=== PATIENT | male | born 1955 | race Caucasian/White ===

== ENCOUNTER 2018-01-23 04:44 | Outpatient (CLI) | payer BC, OTHER ==
[2018-01-23 19:57] LABS: RHEUMATOID FACTOR NEGATIVE (Negative)
[2018-01-25 13:12] LABS: ANA SCREEN NEGATIVE (NEGATIVE)
== END 2018-01-23 04:45 | disposition home or self-care (01) ==
LOC: LAB.WCP 04:44
PROVIDERS: ATTEND Family Medicine
DX: M19.041 Primary osteoarthritis, right hand (principal)
CPT/HCPCS: 36415; 84550; 85651; 86038; 86430

== ENCOUNTER 2019-02-24 08:00 | Outpatient (CLI) | payer BC ==
[2019-02-24 13:34] LABS: ALBUMIN 4.1 g/dL (3.2-5.5); ALBUMIN/GLOBULIN RATIO 1.4 (1.0-2.2); ALKALINE PHOSPHATASE 60 IU/L (42-121); ALT ALANINE AMINOTRANSFERASE 16 IU/L (10-60); AST ASPARTATE AMINOTRANSFERASE 22 IU/L (10-42); BUN - BLOOD UREA NITROGEN 15 mg/dL (6-20); CALCIUM 8.8 mg/dL (8.5-10.3); CARBON DIOXIDE - CO2 24 mmol/L (21-32); CHLORIDE 109 mmol/L (101-111); CHOL/HDL RATIO 6.1 (<5.0); CHOLESTEROL 207 mg/dL; GFR - MDRD 75 (>89); GLUCOSE 101 mg/dL (70-100); HDL CHOLESTEROL 34 mg/dL; LDL CHOLESTEROL,CALCULATED 109 mg/dL; LDL/HDL RATIO 3.2 (<3.6); SODIUM 141 mmol/L (135-145); TOTAL PROTEIN 7.1 g/dL (6.7-8.2); VLDL CHOLESTEROL 64 mg/dL
[2019-02-24 13:38] LABS: BASOPHILS % (AUTO) 0.6 %; EOSINOPHILS # (AUTO) 0.1 10^3/uL (0.0-0.7); EOSINOPHILS % (AUTO) 2.3 %; HGB - HEMOGLOBIN 14.6 g/dL (14.0-18.0); LYMPHOCYTES # (AUTO) 1.3 10^3/uL (1.5-3.5); LYMPHOCYTES % (AUTO) 23.7 %; MEAN CORPUSCULAR HEMOGLOBIN 33.3 pg (27.0-31.0); MEAN CORPUSCULAR VOLUME 97.9 fL (80.0-94.0); MEAN PLATELET VOLUME 11.3 fL (7.4-11.4); MONOCYTES # (AUTO) 0.6 10^3/uL (0.0-1.0); MONOCYTES % (AUTO) 11.5 %; NEUTROPHILS # (AUTO) 3.3 10^3/uL (1.5-6.6); NEUTROPHILS % (AUTO) 61.5 %; PLT - PLATELET COUNT 187 10^3/uL (130-450); RED BLOOD COUNT 4.39 10^6/uL (4.70-6.10); RED CELL DISTRIBUTION WIDTH 12.9 % (12.0-15.0); WHITE BLOOD COUNT 5.3 x10^3/uL (4.8-10.8)
[2019-02-24 14:27] LABS: FREE T4 (FREE THYROXINE) 0.78 ng/dL (0.58-1.64)
== END 2019-02-24 08:01 | disposition home or self-care (01) ==
LOC: LAB.WCP 08:00
PROVIDERS: ATTEND Physician Assistant Medical
DX: Z00.00 Encounter for general adult medical examination without abnormal findings (principal); E78.5 Hyperlipidemia, unspecified; Z12.5 Encounter for screening for malignant neoplasm of prostate
CPT/HCPCS: 36415; 80053; 80061; 83721; 84153; 84439; 84443; 85025

== ENCOUNTER 2020-08-21 17:13 | Emergency (ER) | payer BC ==
--- NOTE | 2020-08-21 18:52 | ED Physician Documentation ---
History of Present Illness - Stated complaint Stated Complaint: FB IN RT EAR - Chief complaint Chief Complaint: Heent - History obtained from History obtained from: Patient - History of Present Illness Timing: Today Pain level max: 0 Pain level now: 0 - Additonal information Additional information: 65-year-old male presents the emergency department complaining of right ear pain for the past week. He states he has had drainage from the ear. Put toilet paper in the ear today and is unable to remove it. No fevers. No chills. No rhinorrhea or congestion. Nothing makes it better or worse. Review of Systems Constitutional: denies: Fever, Chills Skin: denies: Rash Neurologic: denies: Headache PD PAST MEDICAL HISTORY - Past Medical History Past Medical History: Yes Cardiovascular: Hypertension, High cholesterol Respiratory: None Neuro: None Endocrine/Autoimmune: None GI: None : None HEENT: None Psych: None Musculoskeletal: None Derm: None - Past Surgical History Past Surgical History: Yes General: Appendectomy Cardiovascular: Valve replacement - Present Medications Home Medications: Ambulatory Orders Medication Instructions Recorded Confirmed Aspirin [Aspir 81] 81 mg DAILY 01/09/14 02/28/14 [place]-3 Fatty Acids [Fish Oil] 1,000 mg DAILY 01/09/14 02/28/14 Simvastatin [Zocor] 20 mg DAILY 01/09/14 02/28/14 Warfarin [Coumadin] 8 mg DAILY 01/09/14 02/28/14 Neomycin/Polymyx/Hc Otic Drops 4 drops RIGHTEAR TID #1 bottle 08/21/20 [Cortisporin Ear Susp] - Allergies Allergies/Adverse Reactions: Allergies Allergy/AdvReac Type Severity Reaction Status Date / Time No Known Drug Allergies Allergy Verified 08/21/20 17:21 - Social History Does the pt smoke?: No Smoking Status: Never smoker Does the pt drink ETOH?: Yes Does the pt have substance abuse?: No PD ED PE NORMAL - Vitals Vital signs reviewed: Yes - General General: Alert and oriented X 3, No acute distress - HEENT HEENT: Moist mucous membranes, Other (L ear is normal. R ear canal is erythematous with white discharge in the canal. TM normal. no FB) - Neck Neck: Supple, no meningeal sign - Cardiac Cardiac: RRR - Respiratory Respiratory: No respiratory distress, Clear bilaterally - Abdomen Abdomen: Soft, Non tender, Non distended - Derm Derm: Warm and dry - Neuro Neuro: Alert and oriented X 3 - Psych Psych: Normal mood, Normal affect Results - Vitals Vitals: Vital Signs - 24 hr 08/21/20 08/21/20 17:18 18:58 Temperature 36 C L 36.2 C L Heart Rate 60 66 Respiratory 18 15 Rate Blood Pressure 137/63 H 128/69 O2 Saturation 100 99 Oxygen O2 Source Room air PD MEDICAL DECISION MAKING - ED course Complexity details: considered differential, d/w patient ED course: Patient with R otitis externa. Will place on otic abx. No FB. Patient counseled regarding signs and symptoms for which I believe and urgent re- evaluation would be necessary. Patient with good understanding of and agreement to plan and is comfortable going home at this time This document was made in part using voice recognition software. While efforts are made to proofread this document, sound alike and grammatical errors may occur. Departure - Departure Disposition: Home, Self Care Clinical Impression: Otitis externa Qualifiers: Otitis externa type: unspecified type Chronicity: acute Laterality: right Qualified Code(s): H60.501 - Unspecified acute noninfective otitis externa, right ear Condition: Good Instructions: ED Otitis Externa Follow-Up: Amanda Navarro PA-C [Primary Care Provider] - Within 1 week Prescriptions: Neomycin/Polymyx/Hc Otic Drops [Cortisporin Ear Susp] 4 drops RIGHTEAR TID #1 bottle Comments: Use the drops to help with the infection in the ear. If you are having drainage you can lightly place a cotton ball at the auditory canal opening. Follow-up with your doctor for further care. Discharge Date/Time: 08/21/20 18:59
[2020-08-21 18:59] VITALS: BP 128/69
== END 2020-08-21 18:59 | disposition home or self-care (01) ==
LOC: ED 17:13
DX: H60.501 Unspecified acute noninfective otitis externa, right ear (principal); I10 Essential (primary) hypertension; Z95.2 Presence of prosthetic heart valve; Z79.01 Long term (current) use of anticoagulants; Z79.82 Long term (current) use of aspirin
CPT/HCPCS: 99282; 99284

== ENCOUNTER 2020-10-20 08:00 | Outpatient (CLI) | payer BC | END 2020-10-20 23:59 | disposition home or self-care (01) | LOC: LAB.WCP 08:00 | PROVIDERS: ATTEND Physician Assistant Medical | DX: L30.9 Dermatitis, unspecified (principal) | CPT/HCPCS: 87070; 87181; 87205 ==

== ENCOUNTER 2020-11-04 07:25 | Outpatient (CLI) | payer BC ==
[2020-11-04 12:25] LABS: BASOPHILS % (AUTO) 0.6 %; EOSINOPHILS # (AUTO) 0.1 10^3/uL (0.0-0.7); LYMPHOCYTES % (AUTO) 21.1 %; MEAN CORPUSCULAR HEMOGLOBIN 33.7 pg (27.0-31.0); MEAN CORPUSCULAR HGB CONC 33.3 g/dL (32.0-36.0); MEAN CORPUSCULAR VOLUME 101.2 fL (80.0-94.0); MEAN PLATELET VOLUME 11.4 fL (7.4-11.4); MONOCYTES # (AUTO) 0.7 10^3/uL (0.0-1.0); MONOCYTES % (AUTO) 13.9 %; NEUTROPHILS # (AUTO) 2.9 10^3/uL (1.5-6.6); PLT - PLATELET COUNT 184 10^3/uL (130-450); RED BLOOD COUNT 4.15 10^6/uL (4.70-6.10); RED CELL DISTRIBUTION WIDTH 12.8 % (12.0-15.0); WHITE BLOOD COUNT 4.7 x10^3/uL (4.8-10.8)
[2020-11-04 12:28] LABS: ALBUMIN 4.1 g/dL (3.2-5.5); ALBUMIN/GLOBULIN RATIO 1.4 (1.0-2.2); BILIRUBIN,TOTAL 0.9 mg/dL (0.2-1.0); CALCIUM 8.8 mg/dL (8.5-10.3); CREATININE 1.1 mg/dL (0.6-1.2); POTASSIUM 4.1 mmol/L (3.5-5.0)
[2020-11-04 12:40] LABS: THYROID STIMULATING HORMONE 4.19 uIU/mL (0.34-5.60)
== END 2020-11-04 23:59 | disposition home or self-care (01) ==
LOC: LAB.WCP 07:25
PROVIDERS: ATTEND Family Medicine
DX: E78.5 Hyperlipidemia, unspecified (principal); I48.91 Unspecified atrial fibrillation; I35.0 Nonrheumatic aortic (valve) stenosis
CPT/HCPCS: 36415; 80053; 84443; 85025

== ENCOUNTER 2020-12-30 16:12 | Outpatient (CLI) | payer BC ==
[2020-12-30 16:44] VITALS: BP 129/63
--- NOTE | 2020-12-30 16:44 | SLEEP CARE CONSULTATION ---
Information from patient questionnaire entered by Teto Paetl. I have reviewed and concur with the information entered by Teto Patel. This document represents the service I personally performed and the decisions made by me, Darby Lee ARNP. History of Present Illness Service Date and Time: 12/30/2020 1612 Reason for Visit: New patient Chief Complaint: reports: Unrefreshed sleep, Snoring, Observed pauses in breathing, Fatigue, Frequent awakenings at night Date of Onset: Don't know Usual bedtime: 10:00 PM Time it takes to fall asleep: Not long Snores at night: Yes Observed to quit breathing while asleep: Yes Sleeps alone due to snoring: No Number of times waking at night: Once a night Reasons for waking at night: reports: Gasping for air (seen by his but doesn't fully awaken), Pain, Bathroom Toss, Turn, or Twitch while sleeping: Yes Recalls having dreams: Yes Usually gets out of bed at: 4:00 AM Feels refreshed in the morning: No Morning headache: No Sleepy or fatigued during the day: No Ever fallen asleep while driving: No Takes day naps: No Dreams during day naps: No Prior sleep studies: Yes Year and Where: Home study - don't remember Type of Sleep Study: Home sleep study Additional HPI information: I had the pleasure of seeing DYLAN GREWAL today regarding the possibility of him having a sleep disorder. His current complaints are fatigue, frequent night awakenings and snoring. He has been diagnosed with atrial fibrillation and was sent here by cardiology for evaluation. He has a mechanical valve. He is accompanied by his and she has heard him snore and had pauses in breathing. 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 Patient is and lives in [place]. Have you smoked in the past 12 months: No Cigarettes per day (20/pack): 20 Years of smokin Quit date: 2006 Smoking Pack Years: 20.0 Alcohol use: Yes Alcohol amount and frequency: 1 beer a day every 3 days Caffeine use: Yes Caffeine amount and frequency: 1 cup of coffee every day Family History Family history of sleep disordered breathing: No Allergies and Home Medications Drug allergies reviewed: Yes (NKDA) Home medication list reviewed: Yes Allergy and home medication list: Baby aspirin fish oil Atorvastatin Metoprolol warfarin dofetilde (Tikosyn) Review of Systems Cardiovascular: reports: chest pain, irregular heart rate or pulse. denies: high blood pressure Respiratory: reports: shortness of breath Neurological: denies: headaches Psychiatric: denies: anxiety, depression Ear/Nose/Throat: reports: tonsillectomy, wisdom teeth removed Musculoskeletal: reports: joint swelling, muscle pain or cramping Physical Exam Blood Pressure: 129/63 Cuff size: wrist Heart Rate: 69 O2 Saturation: 96 Height: 5 ft 11 in Weight: 225 lb Body Mass Index: 31.4 BMI Classification: Obese Neck circumference: 17 (inches) Mouth and throat: narrow oropharynx Soft palate: long Hard palate: normal Uvula: normal Uvula visualization: 50% Mallampati Class II Tongue: enlarged in size with teeth watson on lateral edges Tonsils: absent bilaterally Neck: normal w/o lymphadenopathy or thyromegaly Heart: regular rate and rhythm Lungs: clear bilaterally Impression and Plan 1. Suspected Obstructive Sleep Apnea-Hypopnea Syndrome, as suggested by a history of loud and irregular snoring, observed cessation of breath while asleep, gasping or choking in sleep, unrefreshed sleep, and excessive daytime sleepiness. Narrow oropharynx and obesity are common predisposing factors for obstructive sleep apnea-hypopnea syndrome. I recommend proceeding to polysomnography to confirm the diagnosis and to assess severity. If the patient has significant sleep disordered breathing, a manual CPAP titration study will also be performed to find the optimal treatment pressure. I informed the patient of what the sleep studies involve and after some discussion, obtained agreement to proceed. The pathophysiology of obstructive sleep apnea-hypopnea syndrome was discussed with the patient and health risks of cardiovascular and cerebrovascular disease if not treated. Risks of drowsy driving discussed in detail and patient advised to avoid long distance driving and to hide puller at the first sign of drowsiness. Patient agreed to plan. * Schedule polysomnography +- manual CPAP titration study and return in 1-2 weeks after the study to discuss result and initiate therapy. * Avoid long distance driving or driving when feeling sleepy. * Avoid alcohol, sedative and muscle relaxant around bedtime. * Attempt to lose weight. * Review instructions provided by trained office staff on how to prepare for the sleep study. * Return for follow-up after sleep study completed. Counseling Topics: Weight loss health impact Visit Type: In Office Other Participants: Spouse/Significant Other Time Spent with Patient (minutes): 30 Provider Statement: I spent 100% of the Face to Face Visit with the patient with greater than 50% spent counseling the patient and coordination of care.
== END 2020-12-30 16:13 | disposition home or self-care (01) ==
LOC: SC 16:12
PROVIDERS: ATTEND Nurse Practitioner Family
DX: G47.10 Hypersomnia, unspecified (principal); G47.8 Other sleep disorders; R06.81 Apnea, not elsewhere classified; R06.83 Snoring; E66.9 Obesity, unspecified; Z68.31 Body mass index [BMI] 31.0-31.9, adult
CPT/HCPCS: 99203; 99212

== ENCOUNTER 2021-01-06 16:20 | Outpatient (CLI) | payer BC | END 2021-01-06 16:21 | disposition home or self-care (01) | LOC: SC 16:20 | PROVIDERS: ATTEND Nurse Practitioner Family | DX: G47.33 Obstructive sleep apnea (adult) (pediatric) (principal); E66.9 Obesity, unspecified; Z68.31 Body mass index [BMI] 31.0-31.9, adult | CPT/HCPCS: 95806 ==

== ENCOUNTER 2021-01-13 14:19 | Outpatient (CLI) | payer BC ==
--- NOTE | 2021-01-13 14:45 | SLEEP CARE CONSULTATION ---
Information from patient questionnaire entered by Kelly Berg. I have reviewed and concur with the information entered by Kelly Berg. This document represents the service I personally performed and the decisions made by , Darby Lee ARNP. History of Present Illness Service Date and Time: 01/13/2021 141 Initial [place] Sleepiness Scale score: 6 (in 2020) Current [place] Sleepiness Scale score: 3 Additional HPI information: DYLAN GREWAL returns with spouse for follow up and results of the recently performed home sleep study. I explained the pathophysiology behind obstructive sleep apnea. We then spent quite a bit of time discussing different treatment options. For mild obstructive sleep apnea, surgery and oral appliance are alternatives to nasal CPAP therapy but in moderate or severe cases, nasal CPAP is the most effective and reliable treatment. I reviewed the impact of weight changes on sleep apnea and strongly recommended losing weight. I explained how CPAP machine works with sample devices RespirCrowd Senses Dreamstation and ResFatwire [id number] and what to expect when using the machine. Patient counseled not drink alcohol less than 4 hours before bedtime as it can increase snoring and apnea. Patient was cautioned about risks of drowsy driving until sleepiness symptoms resolve. Sleep Study - Results Type of Sleep Study: Home sleep study Prior sleep studies: Yes Year and Where: Home study - don't remember Polysomnography/Home Sleep Study results: Physician Impression: The quality of the study is good. The length of the study is adequate (> 240 minutes). Please also see the tabulated and graphic data. 1. Obstructive Sleep Apnea-Hypopnea (ICD-10 G47.33), mild, with an AHI of 8.6/hr and catrachito SaO2 of 82%. During the study, the patient had 41 apneas (40 obstructive, 0 central, 1 mixed) and 33 hypopneas. The longest episode lasted 92.0 seconds. The respiratory events occurred more frequently during supine sleep (supine AHI was 10.5 and non-supine, 6.07). 2. Hypoxemia (ICD-10 R09.02), mild, with the lowest oxygen saturation of 82 % and 7.2 minutes with SaO2 under 90%. Baseline oxygen saturation was normal (Average oxygen saturation was 93%). Allergies and Home Medications Home medication list reviewed: Yes (no changes) Review of Systems Review of systems same as previous: Yes (no changes) Physical Exam Heart Rate: 49 O2 Saturation: 96 Height: 5 ft 11 in Weight: 224 lb (with boots) Body Mass Index: 31.2 BMI Classification: Obese Impression and Plan 1. Obstructive Sleep Apnea-Hypopnea Syndrome, mild, with lowest oxygen saturation of 82%. Obviously this is the cause of the patients symptoms of unrefreshed sleep, and excessive daytime sleepiness. Positive pressure therapy could benefit heart arrhythmia (atrial fibrillation). 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 I advised him that CPAP therapy would give the best benefit for his heart and cardiovascular system but he may choose the oral appliance therapy to control his apneas as well. He voiced understanding. He will call with his decision on which therapy he would like to try. * Call office with decision on chosen therapy modality * Attempt to lose weight. * Avoid alcohol consumption near bedtime. * Avoid supine sleep * The patient is again cautioned about driving until sleepiness completely resolves. * Return follow depends on chosen therapy. Counseling Topics: Weight loss health impact Visit Type: In Office Other Participants: Spouse/Significant Other Time Spent with Patient (minutes): 20 Provider Statement: I spent 100% of the Face to Face Visit with the patient with greater than 50% spent counseling the patient and coordination of care.
== END 2021-01-13 14:20 | disposition home or self-care (01) ==
LOC: SC 14:19
PROVIDERS: ATTEND Nurse Practitioner Family
DX: G47.33 Obstructive sleep apnea (adult) (pediatric) (principal); E66.9 Obesity, unspecified; Z68.31 Body mass index [BMI] 31.0-31.9, adult
CPT/HCPCS: 99212; 99213

== ENCOUNTER 2021-03-09 08:00 | Outpatient (CLI) | payer BC | END 2021-03-09 23:59 | disposition home or self-care (01) | LOC: LAB.S 08:00 | PROVIDERS: ATTEND Physician Assistant Medical | DX: L30.9 Dermatitis, unspecified (principal) | CPT/HCPCS: 87070; 87181; 87205; 87640 ==

== ENCOUNTER 2021-08-23 12:50 | Outpatient (CLI) | payer BC | END 2021-08-23 23:59 | disposition home or self-care (01) | LOC: LAB.R 12:50 | PROVIDERS: ATTEND Physician Assistant Medical | DX: L30.9 Dermatitis, unspecified (principal) | CPT/HCPCS: 87070; 87077; 87181; 87205 ==

== ENCOUNTER 2022-03-06 18:32 | Outpatient (CLI) | payer MEDICARE, BC | END 2022-03-06 18:33 | disposition short-term general hospital (02) | LOC: EMS 18:32 | DX: R55 Syncope and collapse (principal); R53.1 Weakness; R11.2 Nausea with vomiting, unspecified; M54.2 Cervicalgia; M25.512 Pain in left shoulder; M25.511 Pain in right shoulder | CPT/HCPCS: A0425; A0429 ==

== ENCOUNTER 2022-03-07 05:49 | Outpatient (CLI) | payer BC, MEDICARE | END 2022-03-07 05:50 | disposition critical access hospital (66) | LOC: EMS 05:49 | DX: R53.1 Weakness (principal); R40.0 Somnolence | CPT/HCPCS: A0425; A0429 ==

== ENCOUNTER 2022-03-07 06:04 | Emergency (ER) | payer BC, MEDICARE ==
[2022-03-07] MEDS ORDERED: WARFARIN 5 MG TABLET PO STA (06:24)
[2022-03-07] MEDS ORDERED: MORPHINE 2 MG/ML CARPUJECT IVP STA (06:25)
--- NOTE | 2022-03-07 06:33 | ED Physician Documentation ---
History of Present Illness - Stated complaint Stated Complaint: WEAKNESS - Chief complaint Chief Complaint: Neuro - History obtained from History obtained from: Patient, Family - History of Present Illness Timing: Yesterday - Additonal information Additional information: 66-year-old male with history of prosthetic valve on warfarin presents by EMS from home for severe generalized weakness. EMS reports that yesterday the patient was in the pool when he lifted his arms above his head. He felt severe debilitating weakness radiating down from his upper extremities to his lower extremities. Patient was flown from home to [facility] for the symptoms, where he underwent CTA of the chest, CTA of head and neck, and CT C-spine, all which were reportedly unremarkable. Patient was discharged home early this morning, however when he arrived home he was so weak he could not even walk and his again called 911. On arrival patient reports profound weakness in his upper and lower extremities, as well as severe burning pain in his shoulders and neck. Reports that weakness is worse in his lower extremities and his upper extremities. He states that this is happened before in the remote past, however never this bad. Patient denies history of back surgery, denies history of back injections, denies history of IV drug abuse. Only surgical history is valvular replacement many years ago. reports that the patient has been unable to urinate since last night. Patient denies loss of sensation in his upper and lower extremities. Review of Systems Ten Systems: 10 systems reviewed and negative Constitutional: denies: Fever, Chills, Myalgias Cardiac: denies: Chest pain / pressure, Palpitations Respiratory: denies: Dyspnea, Cough : reports: Unable to Void Musculoskeletal: reports: Neck pain. denies: Back pain, Joint pain Neurologic: reports: Generalized weakness, Numbness. denies: Focal weakness, Difficulty speaking, Near syncope, Syncope, Seizure, Confused, Altered mental status, Headache, Head injury, LOC PD PAST MEDICAL HISTORY - Past Medical History Past Medical History: Yes Cardiovascular: Hypertension, High cholesterol Respiratory: None Neuro: None Endocrine/Autoimmune: None GI: None : None HEENT: None Psych: None Musculoskeletal: None Derm: None - Past Surgical History Past Surgical History: Yes General: Appendectomy Cardiovascular: Valve replacement - Present Medications Home Medications: Ambulatory Orders Medication Instructions Recorded Confirmed Aspirin [Aspir 81] 81 mg DAILY 01/09/14 02/28/14 [place]-3 Fatty Acids [Fish Oil] 1,000 mg DAILY 01/09/14 02/28/14 Simvastatin [Zocor] 20 mg DAILY 01/09/14 02/28/14 Warfarin [Coumadin] 8 mg DAILY 01/09/14 02/28/14 Neomycin/Polymyx/Hc Otic Drops 4 drops RIGHTEAR TID #1 bottle 08/21/20 [Cortisporin Ear Susp] - Allergies Allergies/Adverse Reactions: Allergies Allergy/AdvReac Type Severity Reaction Status Date / Time No Known Drug Allergies Allergy Verified 03/07/22 06:12 - Social History Does the pt smoke?: No Smoking Status: Never smoker Does the pt drink ETOH?: Yes Does the pt have substance abuse?: No - Immunizations Immunizations are current?: Yes PD ED PE NORMAL - Vitals Vital signs reviewed: Yes - General General: Alert and oriented X 3, No acute distress, Well developed/nourished - HEENT HEENT: Atraumatic, PERRL, EOMI, Ears normal - Neck Neck: Supple, no meningeal sign, No bony TTP, No adenopathy - Cardiac Cardiac: RRR, No gallop, No rub, Strong equal pulses - Respiratory Respiratory: No respiratory distress, Clear bilaterally - Abdomen Abdomen: Soft, Non tender, Non distended - Male Male : Deferred - Rectal Rectal: Deferred - Back Back: No CVA TTP, No spinal TTP - Derm Derm: Normal color, Warm and dry, No rash - Extremities Extremities: No deformity, No tenderness to palpate - Neuro Neuro: Alert and oriented X 3, category analyst 2-12 intact, No sensory deficit, Normal speech, Other (profound weakness in BLE, unable to move legs. 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 ) - Psych Psych: Normal mood, Normal affect Results - Vitals Vitals: Vital Signs - 24 hr 03/07/22 03/07/22 03/07/22 06:12 06:20 07:55 Temperature 36.4 C L Heart Rate 71 75 Respiratory 15 12 Rate Blood Pressure 129/64 126/66 O2 Saturation 95 94 99 03/07/22 03/07/22 03/07/22 08:00 09:09 09:14 Temperature Heart Rate 64 60 61 Respiratory 15 13 13 Rate Blood Pressure 118/90 H 120/66 120/66 O2 Saturation 99 98 98 03/07/22 03/07/2203/07/22 09:54 10:40 11:26 Temperature Heart Rate 64 55 L 78 Respiratory 18 16 17 Rate Blood Pressure 128/62 136/63 H 132/62 H O2 Saturation 98 99 99 03/07/22 03/07/22 03/07/22 11:43 13:36 15:10 Temperature Heart Rate 65 81 68 Respiratory 15 16 16 Rate Blood Pressure 131/64 H 134/58 H O2 Saturation 95 92 96 03/07/22 03/07/22 03/07/22 16:14 17:12 17:42 Temperature Heart Rate 76 71 64 Respiratory 16 16 16 Rate Blood Pressure 136/60 H 116/63 116/60 O2 Saturation 92 116 H 94 03/07/22 18:00 Temperature Heart Rate 64 Respiratory 16 Rate Blood Pressure 121/58 L O2 Saturation 96 Oxygen O2 Source Nasal cannula - EKG (time done) 0643 Rate: Rate (enter#) (65) Rhythm: NSR [place]: Normal Intervals: Prolonged [place] QRS: Normal Ischemia: Normal ST segments - Labs Labs: Laboratory Tests 03/07/22 03/07/22 03/07/22 07:38 07:38 07:38 WBC 9.0 RBC 4.11 L Hgb 14.3 Hct 40.0 L MCV 97.3 H MCH 34.8 H MCHC 35.8 RDW 12.5 Plt Count 179 MPV 9.9 Neut # (Auto) 7.9 H Lymph # (Auto) 0.7 L [place] # (Auto) 0.5 Eos # (Auto) 0.0 Baso # (Auto) 0.0 Absolute Nucleated RBC 0.00 Nucleated RBC % 0.0 ESR 8 PT INR Sodium 137 Potassium 4.0 Chloride 102 Carbon Dioxide 27 Anion Gap 8.0 BUN 11 Creatinine 0.9 Estimated GFR (MDRD) 84 L Glucose 140 H Calcium 9.1 Phosphorus 2.4 L Magnesium 2.0 Total Bilirubin 1.2 H AST 21 ALT 23 Alkaline Phosphatase 71 Troponin I High Sens C-Reactive Protein < 1.0 Total Protein 7.2 Albumin 4.1 Globulin 3.1 Albumin/Globulin Ratio 1.3 Urine Color Urine Clarity Urine pH Ur Specific [place] Urine Protein Urine Glucose (UA) Urine Ketones Urine Occult Blood Urine Nitrite Urine Bilirubin Urine Urobilinogen Ur Leukocyte Esterase Ur Microscopic Review Urine Culture Comments Nasal Adenovirus (PCR) Nasal B. parapertussis DNA (PCR) Nasal Coronavir 229E PCR Nasal Coronavir HKU1 PCR Nasal Coronavir NL63 PCR Nasal Coronavir OC43 PCR Nasal Enterovir/Rhinovir PCR Nasal Influenza B PCR Nasal Influenza A PCR Nasal Parainfluen 1 PCR Nasal Parainfluen 2 PCR Nasal Parainfluen 3 PCR Nasal Parainfluen 4 PCR Nasal RSV (PCR) Nasal B.pertussis DNA PCR Nasal C.pneumoniae (PCR) [place] Human Metapneumo PCR Nasal M.pneumoniae (PCR) Nasal SARS-CoV-2 (PCR) 03/07/22 03/07/22 03/07/22 07:38 07:38 08:20 WBC RBC Hgb Hct MCV MCH MCHC RDW Plt Count MPV Neut # (Auto) Lymph # (Auto) [place] # (Auto) Eos # (Auto) Baso # (Auto) Absolute Nucleated RBC Nucleated RBC % ESR PT 23.5 H INR 2.1 H Sodium Potassium Chloride Carbon Dioxide Anion Gap BUN Creatinine Estimated GFR (MDRD) Glucose Calcium Phosphorus Magnesium Total Bilirubin AST ALT Alkaline Phosphatase Troponin I High Sens 3.4 C-Reactive Protein Total Protein Albumin Globulin Albumin/Globulin Ratio Urine Color YELLOW Urine Clarity CLEAR Urine pH 7.5 Ur Specific [place] 1.015 Urine Protein NEGATIVE Urine Glucose (UA) NEGATIVE Urine Ketones NEGATIVE Urine Occult Blood TRACE-INTA Urine Nitrite NEGATIVE Urine Bilirubin NEGATIVE Urine Urobilinogen 0.2 (NORMAL) Ur Leukocyte Esterase NEGATIVE Ur Microscopic Review NOT INDICATED Urine Culture Comments NOT INDICATED Nasal Adenovirus (PCR) Nasal B. parapertussis DNA (PCR) Nasal Coronavir 229E PCR Nasal Coronavir HKU1 PCR Nasal Coronavir NL63 PCR Nasal Coronavir OC43 PCR Nasal Enterovir/Rhinovir PCR Nasal Influenza B PCR Nasal Influenza A PCR Nasal Parainfluen 1 PCR Nasal Parainfluen 2 PCR Nasal Parainfluen 3 PCR Nasal Parainfluen 4 PCR Nasal RSV (PCR) Nasal B.pertussis DNA PCR Nasal C.pneumoniae (PCR) [place]iel Human Metapneumo PCR Nasal M.pneumoniae (PCR) Nasal SARS-CoV-2 (PCR) 03/07/22 17:34 WBC RBC Hgb Hct MCV MCH MCHC RDW Plt Count MPV Neut # (Auto) Lymph # (Auto) [place] # (Auto) Eos # (Auto) Baso # (Auto) Absolute Nucleated RBC Nucleated RBC % ESR PT INR Sodium Potassium Chloride Carbon Dioxide Anion Gap BUN Creatinine Estimated GFR (MDRD) Glucose Calcium Phosphorus Magnesium Total Bilirubin AST ALT Alkaline Phosphatase Troponin I High Sens C-Reactive Protein Total Protein Albumin Globulin Albumin/Globulin Ratio Urine Color Urine Clarity Urine pH Ur Specific [place] Urine Protein Urine Glucose (UA) Urine Ketones Urine Occult Blood Urine Nitrite Urine Bilirubin Urine Urobilinogen Ur Leukocyte Esterase Ur Microscopic Review Urine Culture Comments Nasal Adenovirus (PCR) NOT DETECTED Nasal B. parapertussis DNA (PCR) NOT DETECTED Nasal Coronavir 229E PCR NOT DETECTED Nasal Coronavir HKU1 PCR NOT DETECTED Nasal Coronavir NL63 PCR NOT DETECTED Nasal Coronavir OC43 PCR NOT DETECTED Nasal Enterovir/Rhinovir PCR NOT DETECTED Nasal Influenza B PCR NOT DETECTED Nasal Influenza A PCR NOT DETECTED Nasal Parainfluen 1 PCR NOT DETECTED Nasal Parainfluen 2 PCR NOT DETECTED Nasal Parainfluen 3 PCR NOT DETECTED Nasal Parainfluen 4 PCR NOT DETECTED Nasal RSV (PCR) NOT DETECTED Nasal B.pertussis DNA PCR NOT DETECTED Nasal C.pneumoniae (PCR) NOT DETECTED [place]iel Human Metapneumo PCR NOT DETECTED Nasal M.pneumoniae (PCR) NOT DETECTED Nasal SARS-CoV-2 (PCR) NOT DETECTED PD MEDICAL DECISION MAKING - ED course ED course: Patient presenting for severe generalized weakness, lower greater than upper. Reports severe neck pain, denies trauma or other obvious causes for why a neurologic deficit would be present. Negative CTA of head and neck, negative CT C-spine, negative CTA of the chest at outside hospital. has copies of discharge paperwork saying that everything was "normal". Will give medications for pain and will plan MRI with and without contrast of brain and full spine. Concern for possible lesion versus myelitis versus MS versus spinal cord pathology. reports that patient is having difficulty urinating, bladder scan ordered. Care of the patient is signed out to oncoming ED provider. Final disposition pending results and their judgment. Departure - Departure Disposition: 02 Transfer Acute Care Hosp Clinical Impression: Paralysis, Spinal cord lesion Condition: Serious Discharge Date/Time: 03/07/22 18:40
[2022-03-07 07:47] LABS: BASOPHILS % (AUTO) 0.1 %; HGB - HEMOGLOBIN 14.3 g/dL (14.0-18.0); LYMPHOCYTES # (AUTO) 0.7 10^3/uL (1.5-3.5); LYMPHOCYTES % (AUTO) 7.4 %; MEAN CORPUSCULAR HEMOGLOBIN 34.8 pg (27.0-31.0); MEAN CORPUSCULAR HGB CONC 35.8 g/dL (32.0-36.0); MEAN CORPUSCULAR VOLUME 97.3 fL (80.0-94.0); MEAN PLATELET VOLUME 9.9 fL (7.4-11.4); MONOCYTES # (AUTO) 0.5 10^3/uL (0.0-1.0); MONOCYTES % (AUTO) 5.1 %; NEUTROPHILS # (AUTO) 7.9 10^3/uL (1.5-6.6); NEUTROPHILS % (AUTO) 87.1 %; PLT - PLATELET COUNT 179 10^3/uL (130-450); RED BLOOD COUNT 4.11 10^6/uL (4.70-6.10); RED CELL DISTRIBUTION WIDTH 12.5 % (12.0-15.0)
[2022-03-07 07:54] LABS: INR 2.1 (0.8-1.2); PT - PROTHROMBIN TIME 23.5 secs (9.9-12.6)
[2022-03-07 08:04] LABS: ALBUMIN 4.1 g/dL (3.2-5.5); ALBUMIN/GLOBULIN RATIO 1.3 (1.0-2.2); ALKALINE PHOSPHATASE 71 IU/L (42-121); ALT ALANINE AMINOTRANSFERASE 23 IU/L (10-60); AST ASPARTATE AMINOTRANSFERASE 21 IU/L (10-42); BILIRUBIN,TOTAL 1.2 mg/dL (0.2-1.0); BUN - BLOOD UREA NITROGEN 11 mg/dL (6-20); CALCIUM 9.1 mg/dL (8.5-10.3); CARBON DIOXIDE - CO2 27 mmol/L (21-32); CHLORIDE 102 mmol/L (101-111); CREATININE 0.9 mg/dL (0.6-1.2); GFR - MDRD 84 (>89); GLUCOSE 140 mg/dL (70-100); PHOSPHORUS 2.4 mg/dL (2.5-4.6); SODIUM 137 mmol/L (135-145); TOTAL PROTEIN 7.2 g/dL (6.7-8.2)
[2022-03-07 08:05] LABS: CRP - C-REACTIVE PROTEIN < 1.0 mg/dL (0-1.0)
[2022-03-07] MEDS ORDERED: DEXAMETHASONE 10 MG/ML VIAL IV STA ×2 (08:42→16:21)
[2022-03-07 10:01] LABS: BILIRUBIN,URINE NEGATIVE (NEGATIVE); CLARITY,URINE CLEAR (CLEAR); GLUCOSE, URINE (UA) NEGATIVE (NEGATIVE); KETONES,URINE (UA) NEGATIVE (NEGATIVE); LEUKOCYTE ESTERASE, URINE NEGATIVE (NEGATIVE); NITRITE,URINE NEGATIVE (NEGATIVE); OCCULT BLOOD,URINE TRACE-INTA (NEGATIVE); PH,URINE 7.5 PH (5.0-7.5); PROTEIN,URINE NEGATIVE (NEGATIVE); UROBILINOGEN,URINE 0.2 (NORMAL) E.U./dL (NORMAL)
[2022-03-07] MEDS ORDERED: GADOBUTROL 10 MMOL/10 ML VIAL ONE (10:22)
--- NOTE | 2022-03-07 13:54 | MRI Report ---
PROCEDURE: Brain W/WO INDICATIONS: SEVERE WEAKNESS LOWER>UPPER CONTRAST: IV CONTRAST: Gadavist ml: 10 TECHNIQUE: Noncontrast axial T1 spin echo, axial T2 fast spin echo, sagittal and axial FLAIR, coronal T2 fast sp in echo, axial gradient echo, axial diffusion and ADC through the brain. After the administration of contrast, axial and coronal T1 spin echo with fat saturation through the brain. COMPARISON: None. FINDINGS: Image quality: Excellent. CSF spaces: Basal cisterns are patent. No extra-axial fluid collections. Ventricles are normal in size and shape. Brain: No midline shift. No intracranial bleeds or masses. No abnormal intracranial enhancement. There is cerebral volume loss for age. There is periventricular white matter chronic small vessel is chemic change. The brainstem appears normal. Diffusion-weighted images demonstrate no acute ischemi c insults. No chronic ischemic insults. Normal intravascular flow voids are present. Skull and face: Calvarial marrow is normal in signal. Orbits appear normal. Sinuses: Sinuses and mastoids appear clear. IMPRESSION: 1. Mild volume loss and small vessel ischemic disease. 2. No acute process. No recent infarct. Reviewed by: Delphine Palencia MD on 03/07/2022 1:53 PM PDT Approved by: Delphine Palencia MD on 03/07/2022 1:53 PM PDT Station ID: [id number]
[2022-03-07] MEDS ORDERED: predniSONE 20 MG TABLET PO STA (15:30)
--- NOTE | 2022-03-07 15:57 | MRI Report ---
PROCEDURE: Lumbar Spine W/WO INDICATIONS: LOWER EXTREMITY WEAKNESS CONTRAST: IV CONTRAST: Gadavist ml: 10 TECHNIQUE: Noncontrast sagittal T1 spin echo and T2 fast spin echo, sagittal STIR, axial T1 and T2 fast spin ech o through the lumbar spine. In cases with scoliosis, additional coronal T2 fast spin echo may be per formed. After the administration of contrast, sagittal and axial T1 spin echo with fat saturation th rough the lumbar spine. COMPARISON: None. FINDINGS: Image quality: Excellent. Alignment and curvature: There is normal bony alignment. Marrow: Marrow demonstrates an overall heterogeneous pattern. There is appearance of increased T1 an d T2 signal within L2 and L4 and S1 suggestive of hemangiomas. No acute vertebral body compression fr actures. No suspicious marrow enhancement. Spinal cord: Conus medullaris terminates at the L1 level. Visualized spinal cord demonstrates nayan l signal, without suspicious enhancement. Paraspinous soft tissues: No paravertebral masses or abnormal enhancement. Paraspinous muscle atrop hy with fatty infiltration is noted. Discs: Multilevel moderate disc desiccation is present. L1-L2: No disc bulge or spinal stenosis. Mild left foraminal narrowing with facet and ligamentum flav um hypertrophy. L2-L3: No disc bulge or spinal stenosis. Moderate bilateral foraminal narrowing with facet and lig amentum flavum hypertrophy. L3-L4: Minimal disc bulge without spinal stenosis. Moderate bilateral foraminal narrowing with face t and ligamentum flavum hypertrophy. L4-L5: No disc bulge or spinal stenosis. Moderate bilateral foraminal narrowing with facet and liga mentum flavum hypertrophy. L5-S1: Minimal disc bulge without spinal stenosis. Minimal foraminal narrowing. IMPRESSION: Multilevel degenerative changes. Multilevel foraminal narrowing most notable at L2-3 through L4-5 secondary to facet arthropathy. No spinal stenosis. Heterogeneous appearance of the marrow suggestive of fatty replacement. No enhancing lesions are iden tified. Reviewed by: Cary Ratliff MD on 03/07/2022 3:56 PM PDT Approved by: Cary Ratliff MD on 03/07/2022 3:56 PM PDT Station ID: [id number]
[2022-03-07] MEDS ORDERED: GADOBUTROL 10 MMOL/10 ML VIAL IVP ONE (16:16)
[2022-03-07] MEDS ORDERED: ONDANSETRON 4 MG/2 ML VIAL IVP STA (17:03)
[2022-03-07 18:03] VITALS: BP 121/58
--- NOTE | 2022-03-07 18:31 | ED Physician Documentation ---
ED Addendum - Addendum Addendum: 03/07/22 18:22 The patient was signed out to me at change of shift by Dr. Chicas after presenting to the emergency department with Severe weakness of bilateral upper and lower extremities of sudden onset yesterday. I did spend a very long time speaking with this patient and his to try to determine exactly what had happened. The patient reported to me that he had gone to work yesterday morning and felt normal. He came home and took a shower and as he was walking out the door afterward, suddenly noted a burning pain in his neck, radiating out to both shoulders. In that incident, he also developed extreme weakness of his bilateral arms. He was able to use them a little but the weakness seem to progress. He sat down on the couch for a few minutes and then finally lowered himself onto the floor because he was beginning to feel faint and unwell. After laying on the floor for several minutes he tried to get up but then noticed that now his legs were also very weak, which they had not been initially. When the symptoms did not resolve after some time, the called EMS who arrived and were very concerned to the point where they arranged an airlift of the [facility] to [facility]. The patient was seen at [facility], reports having undergone CTAs of the head and neck as well as chest, and then ultimately discharged. He states he was perhaps slightly better upon discharge but not Much. He states that he had been unable to ambulate to the bathroom and had to be wheeled to his car. When they arrived home, he required heavy assistance from his and a neighbor to get back into the house. The patient states that after spending the night trying to rest, he found that he was worse in terms of the weakness again and so decided to come back to the emergency department. He was also continuing to have pain in his neck. He reports furthermore that he had not been able to urinate since last night. The patient and also both report multiple episodes of feeling faint and syncopal or near syncopal when in upright position. The seem to be associated with worsening pain in the neck. Patient states that when he would lay down, he would wake up again and find himself to be sweating heavily. The patient denies any trauma to his neck. He states nothing like this is ever happened before. He denies any sensory deficits. No visual changes or difficulty speaking or swallowing. He states his appetite has been decreased. The patient was seen by Dr. Chicas upon arrival and MRIs of the brain and entire spinal column were ordered and Were pending at the time of signout. I ordered a dose of Decadron 20 mg IV for the patient and this did seem to improve his symptoms. A, though not drastically. On reevaluation, he had very slow response of bilateral upper extremities and left lower extremity. 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 He also was able to resist and pull my hand Toward himself though was easily overcome. He was able to lift both legs off the bed, though with less strength on the left than the right. The same was true with dorsi and plantar flexion. The patient ultimately was sent for MRI but the radiologist stated she would not do the entire MR series that was ordered because there is not time in the schedule. She felt that considering the studies that had been done at [facility], the studies that she would need to rule out anything not seen on CT would be had/brain with and without contrast and a noncontrast lumbar spine. These were ultimately done and found to be negative other than degenerative changes in the spine. I did reevaluate the patient who was still quite weak and unable to stand up. The weakness seems to be more pronounced on the left than the right, with the right upper extremity seeming improved since my initial evaluation. The patient also after sitting up for approximately 10 minutes did suddenly lose consciousness and began to nod off and when shaken awake, stated that he was not feeling well. When laid back, he did become alert again and noted that he felt hot and sweaty. I at this point spoke with [facility], first with Dr. Sullivan of neurology. She did not feel that this is likely to be a stroke syndrome and was concerned about a spinal cord lesion in the cervical region. The case was then discussed by the transfer center with Dr. Guzman, the spine attending, who is in the operating room and unavailable to speak to me. However, he felt the patient needed to come to [facility] urgently/emergently for MRI of the neck and further evaluation. I then spoke with Dr. Su, the ED attending on duty who accepted the patient in transfer. I spoke with the patient and his , who are agreeable to transfer. Final impression: 1. Bilateral upper and lower extremity weakness 2. 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
[2022-03-07 18:42] LABS: B. PARAPERTUSSIS- RESP PCR PAN NOT DETECTED; B. PERTUSSIS- RESP PCR PANEL NOT DETECTED; C. PNEUMONIAE- RESP PCR PANEL NOT DETECTED; CORONAVIRUS 229E-RESP PCR NOT DETECTED; CORONAVIRUS HKU1-RESP PCR NOT DETECTED; CORONAVIRUS NL63-RESP PCR NOT DETECTED; CORONAVIRUS OC43-RESP PCR NOT DETECTED; HUMAN METAPNEUMOVIRUS NOT DETECTED; INFLUENZA A- RESP PCR PANEL NOT DETECTED; INFLUENZA B - RESP PCR PANEL NOT DETECTED; M. PNEUMONIAE- RESP PCR PANEL NOT DETECTED; PARAINFLUENZA VIRUS 1 NOT DETECTED; PARAINFLUENZA VIRUS 2 NOT DETECTED; PARAINFLUENZA VIRUS 3 NOT DETECTED; PARAINFLUENZA VIRUS 4 NOT DETECTED; RHINOVIRUS/ENTEROVIRUS NOT DETECTED; RSV- RESP PCR PANEL NOT DETECTED; SARS-CoV-2 -RESP PCR PANEL NOT DETECTED
== END 2022-03-07 18:40 | disposition short-term general hospital (02) ==
LOC: EDUNIT# → ED 06:04
DX: G95.9 Disease of spinal cord, unspecified (principal); R29.898 Other symptoms and signs involving the musculoskeletal system; Z20.822 Contact with and (suspected) exposure to COVID-19
CPT/HCPCS: 36415; 70553; 72158; 80053; 81003; 83735; 84100; 84484; 85025; 85610; 85651; 86140; 87633; 93005; 96374; 96375; 99285; A9270; A9585; J7512; 81001; 87086

== ENCOUNTER 2022-07-16 21:33 | Emergency (ER) | payer BC, MEDICARE ==
[2022-07-16 21:46] VITALS: BP 146/62
[2022-07-16 23:13] LABS: BILIRUBIN,URINE NEGATIVE (NEGATIVE); GLUCOSE, URINE (UA) NEGATIVE (NEGATIVE); KETONES,URINE (UA) NEGATIVE (NEGATIVE); LEUKOCYTE ESTERASE, URINE SMALL (NEGATIVE); NITRITE,URINE NEGATIVE (NEGATIVE); OCCULT BLOOD,URINE LARGE (NEGATIVE); PROTEIN,URINE NEGATIVE (NEGATIVE); UROBILINOGEN,URINE 0.2 (NORMAL) E.U./dL (NORMAL)
[2022-07-16 23:17] LABS: CLARITY,URINE HAZY (CLEAR)
[2022-07-16 23:18] LABS: BACTERIA,URINE Many /HPF (None Seen); RBC,URINE TNTC /HPF (0-5); SQUAMOUS EPITHELIAL CELL,UR NONE SEEN (<= Few)
[2022-07-16] MEDS ORDERED: SULFAMETH/TRIMETH DS 800/160 MG TABLET PO STA (23:22)
--- NOTE | 2022-07-16 23:41 | ED Physician Documentation ---
History of Present Illness - Stated complaint Stated Complaint: MALE - Chief complaint Chief Complaint: General - History obtained from History obtained from: Patient - Additonal information Additional information: The patient comes to the emergency department with chief complaint of being unable to pass his catheter while self cathing and then noticing blood in his urine. The patient states that he has not had any trouble self cathing recently until today. He states that this morning, he did not have any trouble but noticed that there was some slight blood tingeing to his urine. As he cath eterized himself throughout the rest of the day, he did not notice an increase in blood until this evening, when he tried to access his bladder via catheter and was unsuccessful. He states he used 5 catheters trying to get in and finally, did get some urine but noticed that there was blood in it. He also noticed that a clot passed from the tip of his penis after he took the catheter out. The patient denies dysuria. No fevers or chills. No abdominal pain, nausea, vomiting, or other discomfort. The patient states he has to self cath because of a stroke he had this summer. He is not sure if his prostate is enlarged or not. Review of Systems Ten Systems: 10 systems reviewed and negative Constitutional: reports: Reviewed and negative Eyes: reports: Reviewed and negative Ears: reports: Reviewed and negative Nose: reports: Reviewed and negative Throat: reports: Reviewed and negative Cardiac: reports: Reviewed and negative Respiratory: reports: Reviewed and negative GI: reports: Reviewed and negative : reports: Hematuria Skin: reports: Reviewed and negative Musculoskeletal: reports: Reviewed and negative Neurologic: reports: Reviewed and negative Psychiatric: reports: Reviewed and negative Endocrine: reports: Reviewed and negative Immunocompromised: reports: Reviewed and negative PD PAST MEDICAL HISTORY - Past Medical History Past Medical History: Yes Cardiovascular: Hypertension, High cholesterol Respiratory: None Neuro: CVA Endocrine/Autoimmune: None GI: None : None HEENT: None Psych: None Musculoskeletal: None Derm: None - Past Surgical History Past Surgical History: Yes General: Appendectomy Cardiovascular: Valve replacement - Present Medications Home Medications: Ambulatory Orders Medication Instructions Recorded Confirmed Aspirin [Aspir 81] 81 mg DAILY 01/09/14 02/28/14 Pixley-3 Fatty Acids [Fish Oil] 1,000 mg DAILY 01/09/14 02/28/14 Simvastatin [Zocor] 20 mg DAILY 01/09/14 02/28/14 Warfarin [Coumadin] 8 mg DAILY 01/09/14 02/28/14 Neomycin/Polymyx/Hc Otic Drops 4 drops RIGHTEAR TID #1 bottle 08/21/20 [Cortisporin Ear Susp] Sulfamethox/Trimeth 800/160 1 each PO BID #14 tablet 07/16/22 [Bactrim Ds 800/160] - Allergies Allergies/Adverse Reactions: Allergies Allergy/AdvReac Type Severity Reaction Status Date / Time No Known Drug Allergies Allergy Verified 07/16/22 21:45 - Social History Does the pt smoke?: No Smoking Status: Never smoker Does the pt drink ETOH?: Yes Does the pt have substance abuse?: No - Immunizations Immunizations are current?: Yes PD ED PE NORMAL - Vitals Vital signs reviewed: Yes - General General: Alert and oriented X 3, No acute distress, Well developed/nourished - HEENT HEENT: Atraumatic, PERRL, EOMI, Moist mucous membranes - Respiratory Respiratory: No respiratory distress - Abdomen Abdomen: Soft, Non tender, Non distended - Male Male : Other (Normal male genitalia without external evidence of trauma. A small clot is noted at the tip of the patient's penis at the urethral meatus.) - Derm Derm: Warm and dry - Extremities Extremities: No deformity - Neuro Neuro: Alert and oriented X 3 - Psych Psych: Normal mood, Normal affect Results - Vitals Vitals: Oxygen O2 Source Room air - Labs Labs: Microbiology 07/16/22 23:07 Urine Culture - Final Urine,Catheterized Klebsiella Oxytoca Laboratory Tests 07/16/22 23:07 Urine Color YELLOW Urine Clarity HAZY Urine pH 6.0 Ur Specific [place] 1.010 Urine Protein NEGATIVE Urine Glucose (UA) NEGATIVE Urine Ketones NEGATIVE Urine Occult Blood LARGE H Urine Nitrite NEGATIVE Urine Bilirubin NEGATIVE Urine Urobilinogen 0.2 (NORMAL) Ur Leukocyte Esterase SMALL H Urine RBC TNTC H Urine WBC 11-25 H Ur Squamous Epith Cells NONE SEEN Urine Bacteria Many H Ur Microscopic Review INDICATED Urine Culture Comments INDICATED PD MEDICAL DECISION MAKING - ED course Complexity details: considered differential, d/w patient ED course: I did have nursing staff do a bladder scan on the patient, which showed his bladder to have a volume of greater than 900 cc. A Ackerman catheter was placed and drained easily with only slight blood tingeing of urine. The patient put out over a liter of urine while in the ED. I have given the patient a leg bag with his Ackerman and advised him to keep the Ackerman catheter in place for at least the next couple of days. I suspect he will notice resolution of the blood in the meantime. His urinalysis did show some signs of urinary tract infection, and the patient has been started on antibiotics for this. We have discussed the usual indications for return, and the timeline for follow-up to have the Ackerman removed. Departure - Departure Disposition: 01 Home, Self Care Clinical Impression: Urinary retention Hematuria Qualifiers: Hematuria type: unspecified type Qualified Code(s): R31.9 - Hematuria, unspecified Urinary tract infection Qualifiers: Urinary tract infection type: acute cystitis Hematuria presence: with hematuria Qualified Code(s): N30.01 - Acute cystitis with hematuria Condition: Stable Instructions: ED Catheter Care Ackerman, ED Retention Urinary Male, ED UTI Cystitis Male Prescriptions: Sulfamethox/Trimeth 800/160 [Bactrim Ds 800/160] 1 each PO BID #14 tablet Comments: You were found to have nearly a liter of urine in your bladder. This was blood- tinged but certainly not severely bloody. You were found to have a urinary tract infection, which is most likely the cause of your bloody urine. A prescription for your antibiotics has been sent electronically transmitted to the [facility] pharmacy in [place], and you will need to pick this up in the morning to continue on your course of antibiotics. A catheter has been placed to help your bladder drain spontaneously for the next couple of days. You will need to have the catheter removed after this and go back to self cathing. You may have this done by your primary doctor or by your urologist, or you may return here. Please schedule an appointment to follow-up with your primary doctor regardless for any further concerns. Discharge Date/Time: 07/17/22 00:00
== END 2022-07-17 | disposition home or self-care (01) ==
LOC: ED 21:33
DX: R33.9 Retention of urine, unspecified (principal); N30.01 Acute cystitis with hematuria
CPT/HCPCS: 81001; 87077; 87086; 87181; 99283; 99284; A9270; 81003

== ENCOUNTER 2022-08-04 17:35 | Outpatient (CLI) | payer BC, MEDICARE | END 2022-08-04 17:36 | disposition critical access hospital (66) | LOC: EMS 17:35 | DX: N50.811 Right testicular pain (principal); N36.8 Other specified disorders of urethra; R50.9 Fever, unspecified | CPT/HCPCS: A0425; A0429 ==

== ENCOUNTER 2022-08-04 17:53 | Emergency (ER) | payer BC, MEDICARE ==
[2022-08-04 18:14] LABS: BASOPHILS % (AUTO) 0.2 %; EOSINOPHILS % (AUTO) 0.1 %; HCT - HEMATOCRIT 40.9 % (42.0-52.0); HGB - HEMOGLOBIN 13.5 g/dL (14.0-18.0); LYMPHOCYTES # (AUTO) 0.7 10^3/uL (1.5-3.5); LYMPHOCYTES % (AUTO) 4.3 %; MEAN PLATELET VOLUME 9.1 fL (7.4-11.4); MONOCYTES # (AUTO) 0.9 10^3/uL (0.0-1.0); MONOCYTES % (AUTO) 5.5 %; NEUTROPHILS # (AUTO) 14.6 10^3/uL (1.5-6.6); NEUTROPHILS % (AUTO) 89.3 %; PLT - PLATELET COUNT 235 10^3/uL (130-450); RED BLOOD COUNT 4.35 10^6/uL (4.70-6.10); RED CELL DISTRIBUTION WIDTH 12.7 % (12.0-15.0); WHITE BLOOD COUNT 16.3 x10^3/uL (4.8-10.8)
[2022-08-04 18:20] LABS: INR 3.4 (0.8-1.2)
[2022-08-04 18:26] LABS: ALBUMIN 3.9 g/dL (3.2-5.5); ALBUMIN/GLOBULIN RATIO 1.2 (1.0-2.2); CALCIUM 8.9 mg/dL (8.5-10.3); CREATININE 1.1 mg/dL (0.6-1.2); POTASSIUM 3.8 mmol/L (3.5-5.0); TOTAL PROTEIN 7.1 g/dL (6.7-8.2)
[2022-08-04] MEDS ORDERED: SODIUM CHLORIDE 0.9% 1,000 ML IV STA ×2 (18:49→19:19)
[2022-08-04] MEDS ORDERED: HYDROmorphone 1 MG/ML CARPUJECT IVP STA (18:49)
--- NOTE | 2022-08-04 18:55 | ED Physician Documentation ---
History of Present Illness - Stated complaint Stated Complaint: BLOOD IN URINE/HX OF STROKE - Chief complaint Chief Complaint: Abd Pain - Additonal information Additional information: 67-year-old male who has a history of spinal cord infarction presents to the emergency department for evaluation of pain with intermittent catheterization as well as pain in his right scrotum and testicle. This patient was seen in this ER on 16 July with difficulty passing his self caths. At that time a Ackerman catheter was placed to resolve his obstruction and he was found to have a UTI that grew a variant of Klebsiella. He was placed on Bactrim. The patient ultimately followed up with urology last week and the Ackerman was discontinued he had been self cathing without difficulty until yesterday evening when he began to notice pain again as well as having some associated pain in the scrotum and testicle on the right side. He denies any fevers or vomiting. He is anticoagulated on Coumadin. His right scrotum is markedly swollen and ecchymoti c at this time. Meds: Dofetilide, Metoprolol extended release, atorvastatin 80 mg, aspirin 325, Coumadin 8 mg daily, Flomax, gabapentin 100 mg 3 times daily Review of Systems Constitutional: denies: Fever Cardiac: reports: Reviewed and negative Respiratory: reports: Reviewed and negative GI: reports: Abdominal Pain. denies: Nausea, Vomiting : reports: Unable to Void, Other (per hpi) Skin: reports: Reviewed and negative Musculoskeletal: reports: Reviewed and negative PD PAST MEDICAL HISTORY - Past Medical History Cardiovascular: Hypertension, High cholesterol Respiratory: None Neuro: CVA Endocrine/Autoimmune: None GI: None : None HEENT: None Psych: None Musculoskeletal: None Derm: None - Past Surgical History Past Surgical History: Yes General: Appendectomy Cardiovascular: Valve replacement - Present Medications Home Medications: Ambulatory Orders Medication Instructions Recorded Confirmed Aspirin [Aspir 81] 81 mg DAILY 01/09/14 02/28/14 [place]-3 Fatty Acids [Fish Oil] 1,000 mg DAILY 01/09/14 02/28/14 Simvastatin [Zocor] 20 mg DAILY 01/09/14 02/28/14 Warfarin [Coumadin] 8 mg DAILY 01/09/14 02/28/14 Neomycin/Polymyx/Hc Otic Drops 4 drops RIGHTEAR TID #1 bottle 08/21/20 [Cortisporin Ear Susp] Sulfamethox/Trimeth 800/160 1 each PO BID #14 tablet 07/16/22 [Bactrim Ds 800/160] levoFLOXacin [Levofloxacin] 500 mg PO DAILY #10 tablet 08/04/22 oxyCODONE [Roxicodone] 5 mg PO BID PRN #10 tablet 08/04/22 - Allergies Allergies/Adverse Reactions: Allergies Allergy/AdvReac Type Severity Reaction Status Date / Time No Known Drug Allergies Allergy Verified 07/16/22 21:45 - Social History Does the pt smoke?: No Smoking Status: Never smoker Does the pt drink ETOH?: Yes Does the pt have substance abuse?: No - Immunizations Immunizations are current?: Yes PD ED PE NORMAL - General General: Alert and oriented X 3, Well developed/nourished. 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 Quite tender to touch. No tenderness elicited with palpation of the left testicle. 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 Results - Vitals Vitals: Vital Signs - 24 hr 08/04/22 08/04/22 18:03 20:13 Temperature 37.2 C Heart Rate 104 H 75 Respiratory 18 18 Rate Blood Pressure 154/66 H 112/83 H O2 Saturation 99 95 Oxygen O2 Source Room air - Labs Labs: Laboratory Tests 08/04/22 08/04/22 08/04/22 18:07 18:07 18:07 WBC 16.3 H RBC 4.35 L Hgb 13.5 L Hct 40.9 L MCV 94.0 MCH 31.0 MCHC 33.0 RDW 12.7 Plt Count 235 MPV 9.1 Neut # (Auto) 14.6 H Lymph # (Auto) 0.7 L [place] # (Auto) 0.9 Eos # (Auto) 0.0 Baso # (Auto) 0.0 Absolute Nucleated RBC 0.00 Nucleated RBC % 0.0 PT 35.0 H INR 3.4 H Sodium 133 L Potassium 3.8 Chloride 100 L Carbon Dioxide 26 Anion Gap 7.0 BUN 13 Creatinine 1.1 Estimated GFR (MDRD) 66 L Glucose 110 H Calcium 8.9 Total Bilirubin 1.0 AST 21 ALT 21 Alkaline Phosphatase 84 Total Protein 7.1 Albumin 3.9 Globulin 3.2 Albumin/Globulin Ratio 1.2 Lipase 36 Urine Color Urine Clarity Urine pH Ur Specific [place] Urine Protein Urine Glucose (UA) Urine Ketones Urine Occult Blood Urine Nitrite Urine Bilirubin Urine Urobilinogen Ur Leukocyte Esterase Urine RBC Urine WBC Ur Squamous Epith Cells Urine Bacteria Ur Microscopic Review Urine Culture Comments 08/04/22 18:50 WBC RBC Hgb Hct MCV MCH MCHC RDW Plt Count MPV Neut # (Auto) Lymph # (Auto) [place] # (Auto) Eos # (Auto) Baso # (Auto) Absolute Nucleated RBC Nucleated RBC % PT INR Sodium Potassium Chloride Carbon Dioxide Anion Gap BUN Creatinine Estimated GFR (MDRD) Glucose Calcium Total Bilirubin AST ALT Alkaline Phosphatase Total Protein Albumin Globulin Albumin/Globulin Ratio Lipase Urine Color RED/BLOODY Urine Clarity CLOUDY Urine pH 8.0 H Ur Specific [place] 1.015 Urine Protein 30 H Urine Glucose (UA) NEGATIVE Urine Ketones NEGATIVE Urine Occult Blood LARGE H Urine Nitrite POSITIVE H Urine Bilirubin NEGATIVE Urine Urobilinogen 0.2 (NORMAL) Ur Leukocyte Esterase LARGE H Urine RBC TNTC H Urine WBC >25 H Ur Squamous Epith Cells NONE SEEN Urine Bacteria Moderate H Ur Microscopic Review INDICATED Urine Culture Comments INDICATED - Rads (name of study) CT abd w Radiology: Final report received (Minimal circumferential urinary bladder wall thickening with peridiverticular stranding possibly related to cystitis. No evidence for hydronephrosis or upper urinary tract infection. Scattered diverticulosis.. 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 This gentleman has a history of a spinal cord infarction for which she is anticoagulated on Coumadin. He was initially seen in this emergency department on July 16 for difficulty passing his Self caths. At that time a urinalysis was consistent with infection and an indwelling Ackerman catheter was placed. The patient was started on Bactrim. Subsequent urine culture grew Klebsiella oxalat e which was sensitive to the Bactrim. The patient was seen in follow-up at [facility] last week and the Ackerman catheter was removed. He had been feeling well and continuing with his self catheterizations at home until last night when he began having pain passing the catheter and noticing some blood in his urine. He also began having some right scrotal swelling redness and testicular pain. On presentation to the emergency department the patient appears uncomfortable and he has a fair amount of pain in his right scrotum and testicle which is noted to be erythematous and mildly ecchymotic. I did obtain a CBC and noticed mild leukocytosis. As he is anticoagulated on Coumadin PT/INR were completed and his INR is 3.4. This is the upper range of normal for therapeutic anti-coagulation. His electrolytes showed no worrisome abnormalities.His renal and liver function is normal. His urine is grossly consistent with acute cystitis. His last culture did grow a pansensitive Klebsiella oxalate. I did obtain an ultrasound of His scrotum and testes and we do have findings that are consistent with bilateral epididymoorchitis. Given the leukocytosis and the history of spinal cord injury as well as some generalized abdominal discomfort which was difficult to discern and I did complete a CT of the abdomen with contrast. There were no acute intra-abdominal findings noted. Incidental findings were made of diverticulosis and cholelithiasis without findings of acute-itis. He is noted to have fat-containing umbilical and inguinal hernias without evidence for inflammation. His bladder wall was mildly thickened with peridiverticular stranding likely related to the cystitis seen on urinalysis today. We will start this patient on Levaquin 500 mg once daily for nongonococcal epididymo orchitis. The Levaquin should also adequately treat his acute cystitis. Recent culture showed a pansensitive Klebsiella. I given the patient and his emergent return precautions for worsening symptoms despite antibiotics I am prescribing a short course of short-acting opioid pain medication for this patient. 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 I have discussed that the opioids are for short term therapy only, and will not be refilled from the ED. Departure - Departure Clinical Impression: Epididymo-orchitis, acute, History of spinal cord injury, Anticoagulated on warfarin Urinary tract infection Qualifiers: Urinary tract infection type: catheter-associated UTI Indwelling urinary catheter type: unspecified Encounter type: subsequent encounter Qualified Code (s): T83.511D - Infection and inflammatory reaction due to indwelling urethral catheter, subsequent encounter Condition: Stable Instructions: ED Orchitis, Epididymitis Dc, ED UTI Cystitis Male Prescriptions: levoFLOXacin [Levofloxacin] 500 mg PO DAILY #10 tablet oxyCODONE [Roxicodone] 5 mg PO BID PRN #10 tablet PRN Reason: Pain Comments: Louis you were seen today for pain with catheterization as well as pain in your right scrotum and testicle. Your white blood cell count today was 16,000 but your CBC and electrolytes were otherwise normal. Your INR today is 3.5. The CT of your abdomen did not show any acute intra-abdominal process. You do have incidental findings of diverticulosis. The CT scan does show bladder inflammation consistent with a urinary tract infection. The ultrasound that we did of your scrotum and testicles shows bilateral epididymitis and orchitis. This is infection/inflammation of the epididymis and bilateral testicles. I suspect you have developed epididymoorchitis because of the indwelling catheter you had recently. In order to treat the epididymoorchitis as well as urinary tract infection you are being started on Levaquin 500 mg once daily for the next 10 days. The Levaquin can interact with the Coumadin and cause supratherapeutic INR's. I recommend that you hold the dose of Coumadin and have your INR rechecked on Saturday. If despite starting the antibiotics you develop any fevers, or you have worsening pain or symptoms you must return immediately to the emergency department. It is critical that you call your urology team on Saturday to let them know about this ED visit and our clinical findings. I am prescribing a short course of narcotic pain medication for you. These are potentially dangerous and addictive medications that should be used carefully. These medications may constipate you. Take an [id number] stool softener (docusate) twice daily with plenty of water while taking these medications. If you go 24 hours without a bowel movement, take [id number] miralax, per package instructions. Do not drink or drive while taking these medications. If you received narcotic or sedating medications while in the emergency department, do not drive for 24 hours. Store this medication in a safe, secure place and out of reach of children. It is a violation of federal law to give or sell this medication to another person or to use in a manner other than prescribed. The ED will not refill narcotic prescriptions, including prescriptions lost or stolen. To dispose of unwanted medications: 1. [facility] at [address] in [place] has a medication drop box. They accept prescription medications (in pill form) Saturday through Saturday 9:00 a.m. to 5:00 p.m. 2. The [facility] [employer] accepts prescription medications (in pill form only) for disposal year round. Call for more information. 3. Contact the [facility] for the next [facility] sponsored prescription drug collection event. , [phone], or [phone]; Note that many narcotic pain relievers also contain Tylenol/acetaminophen. Please ensure that your total dose of acetaminophen from all sources does not exceed 3 g (3000 mg) per day.
[2022-08-04 18:58] LABS: BILIRUBIN,URINE NEGATIVE (NEGATIVE); GLUCOSE, URINE (UA) NEGATIVE (NEGATIVE); KETONES,URINE (UA) NEGATIVE (NEGATIVE); LEUKOCYTE ESTERASE, URINE LARGE (NEGATIVE); NITRITE,URINE POSITIVE (NEGATIVE); OCCULT BLOOD,URINE LARGE (NEGATIVE); PROTEIN,URINE 30 mg/dL (NEGATIVE); UROBILINOGEN,URINE 0.2 (NORMAL) E.U./dL (NORMAL)
[2022-08-04] MEDS ORDERED: iohexoL-300 100 ML VIAL ONE (19:02)
[2022-08-04 19:03] LABS: CLARITY,URINE CLOUDY (CLEAR)
[2022-08-04 19:11] LABS: BACTERIA,URINE Moderate /HPF (None Seen); RBC,URINE TNTC /HPF (0-5); SQUAMOUS EPITHELIAL CELL,UR NONE SEEN (<= Few); WBC,URINE >25 /HPF (0-3)
[2022-08-04] MEDS ORDERED: cefTRIAXone 1 GM VIAL IVP STA (19:19)
[2022-08-04] MEDS ORDERED: iohexoL-300 100 ML VIAL IVP ONE (19:41)
--- NOTE | 2022-08-04 20:02 | CT Report ---
PROCEDURE: ABDOMEN/PELVIS W INDICATIONS: dysuria; abdominal pain CONTRAST: 100 OMNI 300 AT 2.5 ML/SEC TECHNIQUE: After the administration of weight appropriate dose of intravenous contrast, 5 mm thick sections acqu ired from the diaphragms to the symphysis. 5 mm thick coronal and sagittal reformats were acquired. For radiation dose reduction, the following was used: automated exposure control, adjustment of mA and/or kV according to patient size. COMPARISON: 01/09/2014 FINDINGS: Image quality: Diagnostic Lung bases: Bibasilar atelectasis. Small hiatal hernia. Heart: Heart size is normal. Atherosclerotic calcifications of the coronary arteries. ABDOMEN: Liver: No significant findings. Gallbladder:Gallbladder contains a tiny punctate density likely representing a gallstone. No wall th ickening or pericholecystic stranding. Biliary ducts: Unremarkable. No biliary ductal dilatation. Pancreas: Pancreas is normal in contour and homogeneous in enhancement. No peripancreatic inflammati on. Spleen: Unremarkable. Adrenal Glands: No adrenal nodules. Kidneys and Ureters: Bilateral kidneys demonstrate normal size and enhancement. No hydronephrosis. Bilateral ureters are normal in course and caliber. No perinephric or periureteral stranding. Stomach and Bowel: Stomach, small bowel loops, and colon are unremarkable. A few scattered clonic diverticula. No evidence for acute diverticulitis. Peritoneum: No abnormal intraperitoneal fluid. No free air. Ventral Wall: Small fat-containing umbilical hernia without acute inflammation. Abdominal Nodes: No retroperitoneal or mesenteric adenopathy by size criteria. Vessels: Scattered atherosclerotic calcifications of the abdominal aorta. No aneurysmal dilatation. PELVIS: Pelvic Organs: Unremarkable as visualized. Bladder: There is minimal circumferential urinary bladder wall thickening with subtle perivesicular stranding. Pelvic Nodes: No pathologically enlarged pelvic lymph nodes. Miscellaneous: Small bilateral fat-containing inguinal hernias without acute inflammation. Likely sma ll bilateral hydroceles. Bones: No acute osseous abnormality seen. No acute compression fractures. Stable appearance of bilat eral sacroiliac ankylosis. Ankylosis noted of the imaged spine. Findings are again compatible with an kylosing spondylitis. IMPRESSION: 1. Minimal circumferential urinary bladder wall thickening with mild peridiverticular stranding possi beata related to cystitis. No evidence for hydronephrosis or upper urinary tract infection identified. 2. Scant colonic diverticulosis without evidence for acute diverticulitis. 3. Cholelithiasis without CT evidence for acute cholecystitis. 4. Stable appearance of ankylosing spondylitis. 5. Fat-containing umbilical and bilateral inguinal hernias without evidence for acute inflammation. 6. Atherosclerosis. Reviewed by: Sloan Sanchez MD on 08/04/2022 8:01 PM PST Approved by: Sloan Sanchez MD on 08/04/2022 8:01 PM PST Station ID: [id number]
--- NOTE | 2022-08-04 20:49 | Ultrasound Report ---
PROCEDURE: Testicle w/Doppler Limited INDICATIONS: right scrotum swelling; ecchymosis TECHNIQUE: Real-time scanning was performed of the scrotum and testicles, with image documentation. Color and p ulse Doppler interrogation was performed of both testicles. COMPARISON: CT abdomen and pelvis from earlier same day. FINDINGS: Right: Testicle is normal in size at 4.0 x 2.6 x 3.4 cm, and homogenous in echotexture. Epididymis is normal in overall size and morphology. Heterogeneous epididymis. No varicoceles. Small right hydr ocele. Overlying scrotal skin is slightly thickened. Left: Testicle is normal in size at 3.9 x 2.9 x 3.5 cm, and homogeneous in echotexture. Epididymis is normal in overall size and morphology. Epididymis appears slightly heterogeneous. No varicoceles. Small left hydrocele. Overlying scrotal skin is normal in thickness. Doppler: Color and pulse Doppler demonstrate normal and symmetric arterial flow in both testicles. There is hyperemia of the bilateral testicles and epididymides. IMPRESSION: 1. Findings compatible with bilateral epididymitis/orchitis. 2. No sonographic evidence for testicular torsion. Reviewed by: Sloan Sanchez MD on 08/04/2022 8:48 PM PST Approved by: Sloan Sanchez MD on 08/04/2022 8:48 PM PST Station ID: [id number]
[2022-08-04] MEDS ORDERED: levoFLOXacin 250 MG TABLET PO STA (21:08)
[2022-08-04] MEDS ORDERED: oxyCODONE 5 MG TABLET PO STA (21:08)
[2022-08-04] MEDS ORDERED: oxyCODONE/ACET 5/325 Prepack 4 PO STA (21:42)
[2022-08-04 22:19] VITALS: BP 115/73
[2022-08-04 23:53] LABS: CHLAMYDIA TRACHOMATIS DNA NEGATIVE (NEGATIVE); NEISSERIA GONORRHOEAE DNA NEGATIVE (NEGATIVE)
== END 2022-08-04 22:19 | disposition home or self-care (01) ==
LOC: EDUNIT# → ED 17:53
DX: N45.3 Epididymo-orchitis (principal); T83.511D Infection and inflammatory reaction due to indwelling urethral catheter, subsequent encounter; Z87.828 Personal history of other (healed) physical injury and trauma; Z79.01 Long term (current) use of anticoagulants
CPT/HCPCS: 36415; 74177; 76870; 80053; 81001; 83690; 85025; 85610; 87086; 87181; 87491; 87591; 93976; 96374; 96375; 99284; A9270; J1170; Q9967; 81003; 87661

== ENCOUNTER 2022-12-21 08:00 | Outpatient (CLI) | payer BC, MEDICARE | END 2022-12-21 23:59 | disposition home or self-care (01) | LOC: LAB.WCP 08:00 | PROVIDERS: ATTEND Family Medicine | DX: I48.91 Unspecified atrial fibrillation (principal); Z95.2 Presence of prosthetic heart valve; Z79.01 Long term (current) use of anticoagulants ==

== ENCOUNTER 2022-12-31 08:00 | Outpatient (CLI) | payer BC, MEDICARE | END 2022-12-31 23:59 | disposition home or self-care (01) | LOC: LAB.N 08:00 | PROVIDERS: ATTEND Physician Assistant Medical | DX: Z79.01 Long term (current) use of anticoagulants (principal); Z95.2 Presence of prosthetic heart valve; I48.91 Unspecified atrial fibrillation ==

== ENCOUNTER 2023-02-01 08:00 | Outpatient (CLI) | payer BC, MEDICARE | END 2023-02-01 23:59 | disposition home or self-care (01) | LOC: LAB.N 08:00 | PROVIDERS: ATTEND Physician Assistant Medical | DX: I48.91 Unspecified atrial fibrillation (principal); Z79.01 Long term (current) use of anticoagulants; Z95.2 Presence of prosthetic heart valve ==

== ENCOUNTER 2023-06-28 08:00 | Outpatient (CLI) | payer BC, MEDICARE | END 2023-06-28 23:59 | disposition home or self-care (01) | LOC: LAB.WCP 08:00 | PROVIDERS: ATTEND Physician Assistant Medical | DX: Z79.01 Long term (current) use of anticoagulants (principal); Z95.2 Presence of prosthetic heart valve; G95.11 Acute infarction of spinal cord (embolic) (nonembolic); I48.91 Unspecified atrial fibrillation ==

== ENCOUNTER 2023-07-07 12:11 | Emergency (ER) | payer BC, MEDICARE ==
--- NOTE | 2023-07-07 12:38 | ED Physician Documentation ---
History of Present Illness - Stated complaint Stated Complaint: ABD PX - Chief complaint Chief Complaint: Abd Pain - History obtained from History obtained from: Patient - History of Present Illness Timing: How many days ago (3) Pain level max: 5 Pain level now: 3 - Additonal information Additional information: 68-year-old male presents to the emergency department with diffuse abdominal pain x 3 days. He states that it started generalized. He states the pain is worse with movement and palpation. He has been taking his stool softeners as he does every day. He has also tried several enemas. Denies any abdominal surgeries in the past. No fevers. No chills. No nausea or vomiting. No recent travel. No antibiotics. No blood in the stool. Review of Systems Constitutional: denies: Fever, Chills GI: denies: Vomiting, Diarrhea Skin: denies: Rash Musculoskeletal: denies: Neck pain, Back pain Neurologic: denies: Headache PD PAST MEDICAL HISTORY - Past Medical History Past Medical History: Yes Cardiovascular: Hypertension, High cholesterol Respiratory: None Neuro: CVA Endocrine/Autoimmune: None GI: None : Retention HEENT: None Psych: None Musculoskeletal: None Derm: None - Past Surgical History Past Surgical History: Yes General: Appendectomy Cardiovascular: Valve replacement - Present Medications Home Medications: Ambulatory Orders Medication Instructions Recorded Confirmed Aspirin [Aspir 81] 81 mg DAILY 01/09/14 02/28/14 [place]-3 Fatty Acids [Fish Oil] 1,000 mg DAILY 01/09/14 02/28/14 Simvastatin [Zocor] 20 mg DAILY 01/09/14 02/28/14 Warfarin [Coumadin] 8 mg DAILY 01/09/14 02/28/14 Neomycin/Polymyx/Hc Otic Drops 4 drops RIGHTEAR TID #1 bottle 08/21/20 [Cortisporin Ear Susp] Sulfamethox/Trimeth 800/160 1 each PO BID #14 tablet 07/16/22 [Bactrim Ds 800/160] levoFLOXacin [Levofloxacin] 500 mg PO DAILY #10 tablet 08/04/22 oxyCODONE [Roxicodone] 5 mg PO BID PRN #10 tablet 08/04/22 Amox/Clav 875/125 [Augmentin] 1 tab PO Q12H #20 tablet 07/07/23 Ondansetron Odt [Zofran] 4 mg TL Q6H PRN #10 tablet 11/26/23 - Allergies Allergies/Adverse Reactions: Allergies Allergy/AdvReac Type Severity Reaction Status Date / Time fentanyl Allergy Rash Verified 07/07/23 12:23 - Social History Does the pt smoke?: No Smoking Status: Never smoker Does the pt drink ETOH?: Yes Does the pt have substance abuse?: No - Immunizations Immunizations are current?: No - POLST Patient has POLST: No PD ED PE NORMAL - Vitals Vital signs reviewed: Yes - General General: Alert and oriented X 3, No acute distress - HEENT HEENT: PERRL, Moist mucous membranes - Neck Neck: Supple, no meningeal sign - Cardiac Cardiac: RRR, Strong equal pulses - Respiratory Respiratory: No respiratory distress, Clear bilaterally - Abdomen Abdomen: Soft, Other (Diffusely tender to palpation. No peritoneal signs. Moderate distention.) - Back Back: No CVA TTP, No spinal TTP - Derm Derm: Warm and dry, No rash - Extremities Extremities: No edema - Neuro Neuro: Alert and oriented X 3 - Psych Psych: Normal mood, Normal affect Results - Vitals Vitals: Vital Signs - 24 hr 07/07/23 07/07/23 07/07/23 12:16 13:05 15:39 Temperature 36.9 C Heart Rate 72 70 70 Respiratory 16 18 18 Rate Blood Pressure 137/62 H 153/62 H O2 Saturation 95 99 97 07/07/23 07/07/23 17:00 18:14 Temperature Heart Rate 68 66 Respiratory 20 20 Rate Blood Pressure 123/53 L 136/67 H O2 Saturation 96 94 Oxygen O2 Source Room air - Labs Labs: Laboratory Tests 07/07/23 07/07/23 07/07/23 12:40 12:40 15:37 WBC 14.2 H RBC 4.12 L Hgb 13.8 L Hct 40.9 L MCV 99.3 H MCH 33.5 H MCHC 33.7 RDW 12.6 Plt Count 156 MPV 9.7 Neut # (Auto) Not Reportable Lymph # (Auto) Not Reportable [place] # (Auto) Not Reportable Eos # (Auto) Not Reportable Baso # (Auto) Not Reportable Absolute Nucleated RBC Not Reportable Total Counted 100 Band Neuts % (Manual) 1 Abnorm Lymph % (Manual) 0 Nucleated RBC % Not Reportable Neutrophils # (Manual) 11.1 H Lymphocytes # (Manual) 1.6 Monocytes # (Manual) 1.6 H Eosinophils # (Manual) 0.0 Basophils # (Manual) 0.0 Differential Comment MANUAL DIFFERENTIAL Manual Slide Review Indicated WBC Morphology 3+ TOXIC GRANULATION Platelet Estimate NORMAL (130-450,000) Platelet Morphology NORMAL APPEARANCE RBC Morph Micro Appear NORMAL APPEARANCE Sodium 134 L Potassium 4.1 Chloride 103 Carbon Dioxide 27 Anion Gap 4.0 L BUN 16 Creatinine 1.0 Estimated GFR (MDRD) 74 L Glucose 109 H Calcium 9.1 Total Bilirubin 1.8 H AST 21 ALT 26 Alkaline Phosphatase 59 Total Protein 6.8 Albumin 4.0 Globulin 2.8 Albumin/Globulin Ratio 1.4 Lipase 31 Urine Color YELLOW Urine Clarity HAZY Urine pH 7.5 Ur Specific [place] 1.010 Urine Protein NEGATIVE Urine Glucose (UA) NEGATIVE Urine Ketones NEGATIVE Urine Occult Blood MODERATE H Urine Nitrite POSITIVE H Urine Bilirubin NEGATIVE Urine Urobilinogen 0.2 (NORMAL) Ur Leukocyte Esterase SMALL H Urine RBC 11-25 H Urine WBC 11-25 H Urine WBC Clumps PRESENT Ur Squamous Epith Cells FEW Squamous Urine Bacteria Moderate H Ur Microscopic Review INDICATED Urine Culture Comments INDICATED - Rads (name of study) CT abdomen pelvis Relevant Findings:: Final report received, See rad report Right upper quadrant ultrasound Relevant Findings:: Final report received, See rad report PD Medical Decision Making - ED course Complexity details: reviewed results, re-evaluated patient, considered differential, d/w patient, d/w family ED course: Patient is a 68-year-old male with abdominal pain, diffuse. Negative Turner sign. His white blood cell count is mildly elevated at 14.2. No fever. CT scan shows a gallbladder that is possibly slightly thickened. There appears to be a stone at the gallbladder neck as well. No other significant acute abnormalities on CT scan. The radiologist recommends ultrasound. Ultrasound was ordered to evaluate for possible cholecystitis. He does have a stone at the cystic duct, but no right upper quadrant pain. His abdomen is soft, not tender in the right upper quadrant. I did discuss the case with Dr. [place], general surgery, and reviewed all labs and imaging. He recommends following up closely in the office this week as an outpatient for possible cholecystectomy. Return precautions given including fever, vomiting, worsening pain or other new or worrisome symptoms. Patient was given IV Rocephin for UTI. Will place him on Augmentin, this should help to cover the GI and urine potential infections. Patient declines any pain medication here or for home. Patient is well- appearing, nontoxic. Afebrile. Patient counseled regarding signs and symptoms for which I believe and urgent re-evaluation would be necessary. Patient with good understanding of and agreement to plan and is comfortable going home at this time This document was made in part using voice recognition software. While efforts are made to proofread this document, sound alike and grammatical errors may occur. Departure - Departure Disposition: Home, Self Care Clinical Impression: Biliary colic UTI (urinary tract infection) Qualifiers: Urinary tract infection type: acute cystitis Hematuria presence: without hematuria Qualified Code(s): N30.00 - Acute cystitis without hematuria Abdominal pain Qualifiers: Abdominal location: unspecified location Qualified Code(s): R10.9 - Unspecified abdominal pain Condition: Good Instructions: ED Gallstone W Biliary Colic, ED UTI Cystitis Male Follow-Up: Amanda Navarro PA-C [Primary Care Provider] - Within 1 week Fransisco [place] MD [Provider Admit Priv/Credential] - Within 1 week Prescriptions: Amox/Clav 875/125 [Augmentin] 1 tab PO Q12H #20 tablet Ondansetron Odt [Zofran] 4 mg TL Q6H PRN #10 tablet PRN Reason: Nausea / Vomiting Comments: Please take all antibiotics until gone. Please return if you worsen. Please contact Dr. [place] for an appointment this week to have your gallbladder reevaluated. Please return for fevers, pain, vomiting or other new or worrisome symptoms. Your prescriptions were sent to [facility] in [place]. As we discussed your gallbladder could be showing signs of early cholecystitis which is an inflammation and infection of the gallbladder. I spoke with Dr. Ewa jeff and he will see you in the office early this week. IMPRESSION: Gallstones are faintly seen. The abdominal wall is mildly thickened and there is trace pericholecystic fluid. The sonographic Turner's sign is negative, however. Please correlate with patient history, physical examination findings, and laboratory values for cholecystitis. IMPRESSION: Gallstones are seen, including a gallstone the gallbladder neck. There is mild inflammatory change seen surrounding the gallbladder. - Please consider a follow-up right upper quadrant ultrasound, if it would be helpful for clinical management decision making. Additional findings: Abnormal bones, with suspicion for ankylosing spondylitis Mild fat-containing periumbilical hernia Moderate bilateral fat-containing inguinal hernias Forms: PCP List Discharge Date/Time: 07/07/23 18:28
[2023-07-07 12:50] LABS: BASOPHILS % (AUTO) 0.2 %; EOSINOPHILS % (AUTO) 0.1 %; HCT - HEMATOCRIT 40.9 % (42.0-52.0); HGB - HEMOGLOBIN 13.8 g/dL (14.0-18.0); LYMPHOCYTES % (AUTO) 9.5 %; MEAN CORPUSCULAR HEMOGLOBIN 33.5 pg (27.0-31.0); MEAN CORPUSCULAR HGB CONC 33.7 g/dL (32.0-36.0); MEAN CORPUSCULAR VOLUME 99.3 fL (80.0-94.0); MEAN PLATELET VOLUME 9.7 fL (7.4-11.4); MONOCYTES % (AUTO) 11.8 %; NEUTROPHILS % (AUTO) 77.9 %; PLT - PLATELET COUNT 156 10^3/uL (130-450); RED BLOOD COUNT 4.12 10^6/uL (4.70-6.10); RED CELL DISTRIBUTION WIDTH 12.6 % (12.0-15.0); WHITE BLOOD COUNT 14.2 x10^3/uL (4.8-10.8)
[2023-07-07 12:59] LABS: ALBUMIN/GLOBULIN RATIO 1.4 (1.0-2.2); BILIRUBIN,TOTAL 1.8 mg/dL (0.2-1.0); CALCIUM 9.1 mg/dL (8.5-10.3); POTASSIUM 4.1 mmol/L (3.5-4.5); TOTAL PROTEIN 6.8 g/dL (6.4-8.9)
[2023-07-07 13:03] LABS: SLIDE REVIEW? Indicated
[2023-07-07 13:04] LABS: ABNORMAL LYMPHS % (MANUAL) 0 %
[2023-07-07 13:38] LABS: BAND NEUTROPHILS % (MANUAL) 1 %; DIFFERENTIAL COMMENT MANUAL DIFFERENTIAL; LYMPHOCYTES # (MANUAL) 1.6 10^3/uL (1.5-3.5); LYMPHOCYTES % (MANUAL) 11 %; MONOCYTES # (MANUAL) 1.6 10^3/uL (0.0-1.0); NEUTROPHILS # (MANUAL) 11.1 10^3/uL (1.5-6.6)
[2023-07-07 13:39] LABS: PLATELET ESTIMATE, MANUAL NORMAL (130-450,000) (NORMAL); PLATELET MORPHOLOGY NORMAL APPEARANCE (NORMAL); RBC MORPHOLOGY (MULTIPLE) NORMAL APPEARANCE (NORMAL)
[2023-07-07 13:42] LABS: WBC MORPHOLOGY (MULTIPLE) 3+ TOXIC GRANULATION (NORMAL)
[2023-07-07] MEDS ORDERED: iohexoL-300 100 ML VIAL IVP ONE (15:39)
[2023-07-07 15:43] LABS: BILIRUBIN,URINE NEGATIVE (NEGATIVE); GLUCOSE, URINE (UA) NEGATIVE (NEGATIVE); KETONES,URINE (UA) NEGATIVE (NEGATIVE); LEUKOCYTE ESTERASE, URINE SMALL (NEGATIVE); NITRITE,URINE POSITIVE (NEGATIVE); OCCULT BLOOD,URINE MODERATE (NEGATIVE); PH,URINE 7.5 PH (5.0-7.5); PROTEIN,URINE NEGATIVE (NEGATIVE); UROBILINOGEN,URINE 0.2 (NORMAL) E.U./dL (NORMAL)
[2023-07-07 15:45] LABS: CLARITY,URINE HAZY (CLEAR)
--- NOTE | 2023-07-07 15:50 | CT Report ---
PROCEDURE: ABDOMEN/PELVIS W INDICATIONS: Abdominal pain, acute, nonlocalized CONTRAST: Omni 300 100ml TECHNIQUE: After the administration of IV contrast, 5 mm thick sections acquired from the diaphragms to the symp hysis. 5 mm thick coronal and sagittal reformats were acquired. For radiation dose reduction, the f ollowing was used: automated exposure control, adjustment of mA and/or kV according to patient size. COMPARISON: IV 08/04/2022, 01/09/2014 FINDINGS: Image quality: Excellent. 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 Liver: No solid mass. Gallbladder and biliary tree: Gallstones are seen, including a gallstone within gallbladder neck. Mil d inflammatory change can be seen adjacent to the gallbladder. Spleen: No splenomegaly. Pancreas: No pancreatic ductal dilation. Adrenals: No adrenal nodule. Kidneys and ureters: No hydronephrosis. No renal cystic lesion which requires follow up. No solid mas s. Bowel and peritoneum: No bowel distension. No pathologic free fluid. Lymph nodes: No central or retroperitoneal adenopathy. Vessels: No infrarenal aortic aneurysm. Atherosclerotic calcification is seen. PELVIS Reproductive organs: Unremarkable. Bladder: No abnormal wall thickening, accounting for underdistension. Pelvic lymph nodes: No pelvic adenopathy by size criteria. Bones: No aggressive osseous abnormality. The bones are diffusely abnormal, with multiple levels of bridging syndesmophytes. Other: A mild fat-containing periumbilical hernia is seen. Moderate bilateral fat-containing inguina l hernias are seen. IMPRESSION: Gallstones are seen, including a gallstone the gallbladder neck. There is mild inflammatory change se en surrounding the gallbladder. - Please consider a follow-up right upper quadrant ultrasound, if it would be helpful for clinical ma nagement decision making. Additional findings: Abnormal bones, with suspicion for ankylosing spondylitis Mild fat-containing periumbilical hernia Moderate bilateral fat-containing inguinal hernias Reviewed by: Norman Price MD on 07/07/2023 2:48 PM [facility] Approved by: Norman Price MD on 07/07/2023 2:48 PM [facility] Station ID: [id number]
[2023-07-07 15:56] LABS: BACTERIA,URINE Moderate /HPF (None Seen); SQUAMOUS EPITHELIAL CELL,UR FEW Squamous (<= Few); WBC CLUMPS,URINE PRESENT
[2023-07-07] MEDS ORDERED: cefTRIAXone 1 GM VIAL IVP STA (16:39)
--- NOTE | 2023-07-07 16:40 | Ultrasound Report ---
PROCEDURE: Abdomen Limited INDICATIONS: RUQ pain TECHNIQUE: Real-time focused scanning was performed of the abdomen, with image documentation. COMPARISONS: Correlation is made with the accompanying CT examination. FINDINGS: Liver: The liver demonstrates normal size. The liver demonstrates moderately increased echogenicit y, with heterogeneity, which limits ultrasound sensitivity for detection of masses. The main portal v ein demonstrates normal size and hepatopedal flow. Gallbladder: There is a hyperechoic focus seen within the gallbladder fundus, measuring up to 7 mm. T here is potential additional stone seen within the cystic duct. The gallbladder wall is mildly thicke ch[place] at 5 mm. There is trace pericholecystic fluid. The sonographic Turner's sign is negative. Biliary ducts: Intrahepatic bile ducts are non-dilated. Extrahepatic bile duct caliber measures 4 m m. Normal is 6-7 mm or less in diameter, or 10 mm or less post-cholecystectomy. Pancreas: Visualized portions of the pancreas are sonographically normal. Right kidney: Normal in size and echotexture. Right kidney measures 11.9 cm long. No hydronephrosis or nephrolithiasis. No solid masses. No complex renal cystic lesions which require follow-up. IVC: Intrahepatic inferior vena cava is patent. Miscellaneous: No free abdominal fluid. IMPRESSION: Gallstones are faintly seen. The abdominal wall is mildly thickened and there is trace pericholecysti c fluid. The sonographic Turner's sign is negative, however. Please correlate with patient history, p hysical examination findings, and laboratory values for cholecystitis. Note: Concordant preliminary findings given by the lime sludge kiln operator upon the completion of the examination to Dr. French. Reviewed by: Norman Price MD on 07/07/2023 3:38 PM [facility] Approved by: Norman Price MD on 07/07/2023 3:38 PM [facility] Station ID: [id number]
[2023-07-07 18:15] VITALS: BP 136/67; O2SAT 94
--- NOTE | 2023-07-10 12:02 | ED Physician Documentation ---
ED Addendum - Addendum Addendum: 07/10/23 12:00 I was presented with culture results from the patient's urine, and the patient was found to have bacteria resistant to both penicillin family and to third- generation cephalosporins. The bacteria was sensitive to nitrofurantoin and levofloxacin, but I felt the concern over the gallbladder as well as the urine, levofloxacin would be a better option. I did send a prescription for this into [facility], the pharmacy of the patient's choice. The patient was contacted by nursing staff to inform him of the need for antibiotic change.
== END 2023-07-07 18:28 | disposition home or self-care (01) ==
LOC: ED 12:11
DX: K80.50 Calculus of bile duct without cholangitis or cholecystitis without obstruction (principal); N30.00 Acute cystitis without hematuria; B96.89 Other specified bacterial agents as the cause of diseases classified elsewhere; Z16.11 Resistance to penicillins; Z16.19 Resistance to other specified beta lactam antibiotics; R10.84 Generalized abdominal pain; I10 Essential (primary) hypertension; E78.00 Pure hypercholesterolemia, unspecified; Z79.82 Long term (current) use of aspirin; Z79.899 Other long term (current) drug therapy
CPT/HCPCS: 36415; 74177; 76705; 80053; 81001; 83690; 85025; 87077; 87086; 87181; 96374; 99284; Q9967; 81003

== ENCOUNTER → 2023-09-20 | Outpatient (CLI) | payer OTHER, MEDICARE | LOC: LAB.N 08:00 | PROVIDERS: ATTEND Physician Assistant Medical | DX: I48.91 Unspecified atrial fibrillation (principal); Z79.01 Long term (current) use of anticoagulants; Z95.2 Presence of prosthetic heart valve ==

== ENCOUNTER → 2023-10-04 | Outpatient (CLI) | payer OTHER, MEDICARE | LOC: LAB.WCP 08:00 | PROVIDERS: ATTEND Physician Assistant Medical | DX: I48.91 Unspecified atrial fibrillation (principal); Z79.01 Long term (current) use of anticoagulants; Z95.2 Presence of prosthetic heart valve ==

== ENCOUNTER → 2023-11-01 | Outpatient (CLI) | payer BC, MEDICARE | LOC: LAB.WCP 08:00 | PROVIDERS: ATTEND Physician Assistant Medical | DX: I48.91 Unspecified atrial fibrillation (principal); Z79.01 Long term (current) use of anticoagulants; Z95.2 Presence of prosthetic heart valve ==

== ENCOUNTER 2023-11-28 15:21 | Outpatient (CLI) | payer BC, MEDICARE | END 2023-11-28 15:22 | disposition home or self-care (01) | LOC: LAB.N 15:21 | PROVIDERS: ATTEND Physician Assistant Medical | DX: I48.91 Unspecified atrial fibrillation (principal); Z79.01 Long term (current) use of anticoagulants; Z95.2 Presence of prosthetic heart valve | CPT/HCPCS: 36416; 85610 ==

== ENCOUNTER 2023-12-06 08:00 | Outpatient (CLI) | payer BC, MEDICARE | END 2023-12-06 08:01 | disposition home or self-care (01) | LOC: LAB.WCP 08:00 | PROVIDERS: ATTEND Physician Assistant Medical | DX: I48.91 Unspecified atrial fibrillation (principal); Z79.01 Long term (current) use of anticoagulants; Z95.2 Presence of prosthetic heart valve ==

== ENCOUNTER 2023-12-09 08:00 | Outpatient (CLI) | payer BC, MEDICARE | END 2023-12-09 08:01 | disposition home or self-care (01) | LOC: LAB.N 08:00 | PROVIDERS: ATTEND Physician Assistant Medical | DX: I48.91 Unspecified atrial fibrillation (principal); G95.11 Acute infarction of spinal cord (embolic) (nonembolic); Z79.01 Long term (current) use of anticoagulants; Z95.2 Presence of prosthetic heart valve ==

== ENCOUNTER 2023-12-13 20:44 | Outpatient (CLI) | payer MEDICARE, BC | END 2023-12-13 23:59 | disposition critical access hospital (66) | LOC: EMS 20:44 | DX: R53.1 Weakness (principal); R25.3 Fasciculation; R50.9 Fever, unspecified; R00.0 Tachycardia, unspecified; R19.37 Generalized abdominal rigidity | CPT/HCPCS: A0425; A0427 ==

== ENCOUNTER 2023-12-13 21:01 | Emergency (ER) | payer MEDICARE, BC ==
[2023-12-13 21:55] LABS: BASOPHILS % (AUTO) 0.3 %; EOSINOPHILS % (AUTO) 0.2 %; HCT - HEMATOCRIT 41.3 % (42.0-52.0); HGB - HEMOGLOBIN 14.1 g/dL (14.0-18.0); LYMPHOCYTES % (AUTO) 3.2 %; MEAN CORPUSCULAR HEMOGLOBIN 33.5 pg (27.0-31.0); MEAN CORPUSCULAR HGB CONC 34.1 g/dL (32.0-36.0); MEAN CORPUSCULAR VOLUME 98.1 fL (80.0-94.0); MEAN PLATELET VOLUME 9.4 fL (7.4-11.4); MONOCYTES % (AUTO) 5.6 %; NEUTROPHILS % (AUTO) 90.2 %; PLT - PLATELET COUNT 253 10^3/uL (130-450); RED BLOOD COUNT 4.21 10^6/uL (4.70-6.10); RED CELL DISTRIBUTION WIDTH 12.3 % (12.0-15.0); WHITE BLOOD COUNT 22.5 x10^3/uL (4.8-10.8)
[2023-12-13 22:00] LABS: BILIRUBIN,URINE NEGATIVE (NEGATIVE); GLUCOSE, URINE (UA) NEGATIVE (NEGATIVE); KETONES,URINE (UA) NEGATIVE (NEGATIVE); LEUKOCYTE ESTERASE, URINE NEGATIVE (NEGATIVE); NITRITE,URINE POSITIVE (NEGATIVE); OCCULT BLOOD,URINE LARGE (NEGATIVE); PROTEIN,URINE NEGATIVE (NEGATIVE); UROBILINOGEN,URINE 0.2 (NORMAL) E.U./dL (NORMAL)
[2023-12-13 22:02] LABS: PARTIAL THROMBOPLASTIN TIME 43.1 secs (24.9-33.3)
--- NOTE | 2023-12-13 22:05 | ED Physician Documentation ---
History of Present Illness - Stated complaint Stated Complaint: POST OP INFECTION/FEVER - Chief complaint Chief Complaint: Fever - History obtained from History obtained from: Patient, Family () - Additonal information Additional information: 68yM with pmh cva february 2023, psh tavr 2011, laparoscopic cholecystectomy At [facility] [address] Valverde, presents with dizziness, unsteadiness and 103 fever starting today. Patient also has had rhinorrhea for the past few days and shortness of breath for the past couple months. Denies dysuria, hematuria but he does have increased frequency. Denies abdominal pain, chest pain. patient does self cath for urinary issues s/p cva. PD PAST MEDICAL HISTORY - Past Medical History Cardiovascular: Hypertension, High cholesterol, Other Respiratory: None Neuro: CVA Endocrine/Autoimmune: None GI: None : Retention HEENT: None Psych: None Musculoskeletal: None Derm: None - Past Surgical History Past Surgical History: Yes General: Appendectomy Cardiovascular: Valve replacement - Present Medications Home Medications: Ambulatory Orders Medication Instructions Recorded Confirmed Aspirin [Aspirin EC] 81 mg PO DAILY 12/13/23 12/13/23 Atorvastatin Calcium [Lipitor] 80 mg PO QPM 12/13/23 12/13/23 Dofetilide [Tikosyn] 250 mcg PO BID 12/13/23 12/13/23 Gabapentin [Neurontin] 900 mg PO TID 12/13/23 12/13/23 Magnesium Hydroxide [Milk of 400 mg PO PRN PRN 12/13/23 12/13/23 Magnesia] Metoprolol Succinate [Toprol Xl] 25 mg PO DAILY 12/13/23 12/13/23 [place]-3 Fatty Acids [[place]ermann-3] 1,000 mg PO DAILY 12/13/23 12/13/23 Senna [Senokot] 8.6 mg PO DAILY 12/13/23 12/13/23 Tamsulosin HCl [Flomax] 0.4 mg PO DAILY 12/13/23 12/13/23 Warfarin Sodium [Jantoven] 8 mg PO DAILY 12/13/23 12/13/23 bisacodyL [Dulcolax] 10 mg PO DAILY PRN 12/13/23 12/13/23 polyethylene glycoL 3350 [Miralax] 17 gm PO DAILY 12/13/23 12/13/23 Cefpodoxime Proxetil [Vantin] 200 mg PO Q12H #28 tablet 12/14/23 - Allergies Allergies/Adverse Reactions: Allergies Allergy/AdvReac Type Severity Reaction Status Date / Time fentanyl Allergy Rash Verified 12/13/23 21:07 - Social History Does the pt smoke?: No Smoking Status: Never smoker Does the pt drink ETOH?: Yes Does the pt have substance abuse?: No - Immunizations Immunizations are current?: No - POLST Patient has POLST: No PD ED PE NORMAL - Vitals Vital signs reviewed: Yes - General General: Alert and oriented X 3, No acute distress, Well developed/nourished - HEENT HEENT: Atraumatic, PERRL, EOMI, Moist mucous membranes, Pharynx benign - Neck Neck: Supple, no meningeal sign - Cardiac Cardiac: RRR, Other (systolic murmur) - Respiratory Respiratory: No respiratory distress, Clear bilaterally - Abdomen Abdomen: Non tender, Non distended - Back Back: No CVA TTP - Derm Derm: Normal color, Warm and dry - Extremities Extremities: No deformity - Neuro Neuro: Alert and oriented X 3, No motor deficit, No sensory deficit - Psych Psych: Normal mood, Normal affect Results - Vitals Vitals: Vital Signs - 24 hr 12/13/23 12/13/23 12/14/23 21:02 23:14 00:00 Temperature 39.2 C H 38.0 C H Heart Rate 102 H 87 83 Respiratory 20 14 18 Rate Blood Pressure 137/66 H 113/47 L 131/59 H O2 Saturation 95 100 95 Oxygen O2 Source Room air - Labs Labs: Laboratory Tests 12/13/23 12/13/23 12/13/23 21:35 21:35 21:42 WBC 22.5 H RBC 4.21 L Hgb 14.1 Hct 41.3 L MCV 98.1 H MCH 33.5 H MCHC 34.1 RDW 12.3 Plt Count 253 MPV 9.4 Neut # (Auto) Not Reportable Lymph # (Auto) Not Reportable [place] # (Auto) Not Reportable Eos # (Auto) Not Reportable Baso # (Auto) Not Reportable Absolute Nucleated RBC Not Reportable Total Counted 100 Band Neuts % (Manual) 2 Reactive Lymphs % (Man) 2 Abnorm Lymph % (Manual) 0 Nucleated RBC % Not Reportable Neutrophils # (Manual) 21.2 H Lymphocytes # (Manual) 0.7 L Monocytes # (Manual) 0.7 Eosinophils # (Manual) 0.0 Basophils # (Manual) 0.0 Differential Comment MANUAL DIFFERENTIAL Platelet Estimate NORMAL (130-450,000) Platelet Morphology NORMAL APPEARANCE RBC Morph Micro Appear NORMAL APPEARANCE PT INR APTT Sodium Potassium Chloride Carbon Dioxide Anion Gap BUN Creatinine Estimated GFR (MDRD) Glucose Lactic Acid Calcium Total Bilirubin AST ALT Alkaline Phosphatase Total Protein Albumin Globulin Albumin/Globulin Ratio Lipase Urine Color YELLOW Urine Clarity HAZY Urine pH 7.0 Ur Specific [place] 1.015 Urine Protein NEGATIVE Urine Glucose (UA) NEGATIVE Urine Ketones NEGATIVE Urine Occult Blood LARGE H Urine Nitrite POSITIVE H Urine Bilirubin NEGATIVE Urine Urobilinogen 0.2 (NORMAL) Ur Leukocyte Esterase NEGATIVE Urine RBC 6-10 H Urine WBC 6-10 H Ur Squamous Epith Cells RARE Squamous Urine Bacteria Many H Urine Sperm PRESENT Ur Microscopic Review INDICATED Urine Culture Comments INDICATED Nasal Adenovirus (PCR) NOT DETECTED Nasal B. parapertussis DNA (PCR) NOT DETECTED Nasal Coronavir 229E PCR NOT DETECTED Nasal Coronavir HKU1 PCR NOT DETECTED Nasal Coronavir NL63 PCR NOT DETECTED Nasal Coronavir OC43 PCR NOT DETECTED Nasal Enterovir/Rhinovir PCR NOT DETECTED Nasal Influenza B PCR NOT DETECTED Nasal Influenza A PCR NOT DETECTED Nasal Parainfluen 1 PCR NOT DETECTED Nasal Parainfluen 2 PCR NOT DETECTED Nasal Parainfluen 3 PCR NOT DETECTED Nasal Parainfluen 4 PCR NOT DETECTED Nasal RSV (PCR) NOT DETECTED Nasal B.pertussis DNA PCR NOT DETECTED Nasal C.pneumoniae (PCR) NOT DETECTED [place] Human Metapneumo PCR NOT DETECTED Nasal M.pneumoniae (PCR) NOT DETECTED Nasal SARS-CoV-2 (PCR) NOT DETECTED 12/13/23 12/13/23 12/13/23 21:42 21:42 21:42 WBC RBC Hgb Hct MCV MCH MCHC RDW Plt Count MPV Neut # (Auto) Lymph # (Auto) [place] # (Auto) Eos # (Auto) Baso # (Auto) Absolute Nucleated RBC Total Counted Band Neuts % (Manual) Reactive Lymphs % (Man) Abnorm Lymph % (Manual) Nucleated RBC % Neutrophils # (Manual) Lymphocytes # (Manual) Monocytes # (Manual) Eosinophils # (Manual) Basophils # (Manual) Differential Comment Platelet Estimate Platelet Morphology RBC Morph Micro Appear PT 31.9 H INR 3.1 H APTT 43.1 H Sodium 135 Potassium 3.9 Chloride 103 Carbon Dioxide 25 Anion Gap 7.0 BUN 15 Creatinine 1.3 Estimated GFR (MDRD) 55 L Glucose 109 H Lactic Acid 1.0 Calcium 9.5 Total Bilirubin 0.9 AST 16 ALT 24 Alkaline Phosphatase 94 Total Protein 7.7 Albumin 4.3 Globulin 3.4 Albumin/Globulin Ratio 1.3 Lipase 49 Urine Color Urine Clarity Urine pH Ur Specific [place] Urine Protein Urine Glucose (UA) Urine Ketones Urine Occult Blood Urine Nitrite Urine Bilirubin Urine Urobilinogen Ur Leukocyte Esterase Urine RBC Urine WBC Ur Squamous Epith Cells Urine Bacteria Urine Sperm Ur Microscopic Review Urine Culture Comments Nasal Adenovirus (PCR) Nasal B. parapertussis DNA (PCR) Nasal Coronavir 229E PCR Nasal Coronavir HKU1 PCR Nasal Coronavir NL63 PCR Nasal Coronavir OC43 PCR Nasal Enterovir/Rhinovir PCR Nasal Influenza B PCR Nasal Influenza A PCR Nasal Parainfluen 1 PCR Nasal Parainfluen 2 PCR Nasal Parainfluen 3 PCR Nasal Parainfluen 4 PCR Nasal RSV (PCR) Nasal B.pertussis DNA PCR Nasal C.pneumoniae (PCR) [place] Human Metapneumo PCR Nasal M.pneumoniae (PCR) Nasal SARS-CoV-2 (PCR) PD Medical Decision Making - ED course ED course: 68yM p/w sepsis 2/2 uti, likely due to non sterile self cath. Creatinine normal. WBC 22, and u/a shows uti. Lactate normal. CT report states fluid collection in RUQ concerning for abscess. antibiotics ordered. D/w surgeon at Dr. Dillon who reviewed the fluid collection and states it's pretty small and likely just a small hematoma and some of the surgiseal. He does not think it's an abscess. The CT images look like normal postoperative changes. Too small for IR to intervene or for surgery to go in again at any rate. Most likely source for infection is uti. d/w patient and strict return precautions given. plan to dc home with outpatient antibiotics for uti. he will f/u surgery clinic. Departure - Departure Disposition: 01 Home, Self Care Clinical Impression: UTI (urinary tract infection) Condition: Stable Prescriptions: Cefpodoxime Proxetil [Vantin] 200 mg PO Q12H #28 tablet Comments: You were seen in the emergency department for uti. Antibiotics sent electronically to [facility]. Please follow-up with your surgeon outpatient and return to the emergency department if you have any new or worsening symptoms or other concerns. Forms: PCP List
[2023-12-13 22:06] LABS: CLARITY,URINE HAZY (CLEAR)
--- NOTE | 2023-12-13 22:07 | XRAY Report ---
PROCEDURE: Chest 1V INDICATIONS: fever TECHNIQUE: One view of the chest was acquired. COMPARISON: CT chest 01/09/2014 FINDINGS: Surgical changes and devices: Sternal wires. Lungs and pleura: No pleural effusions or pneumothorax. Lungs are clear. Right costophrenic angle is not fully included within the [id number], limiting evaluation. Mediastinum: Mediastinal contours appear normal. Heart size is enlarged. Bones and chest wall: No suspicious bony lesions. Overlying soft tissues appear unremarkable. IMPRESSION: No acute cardiopulmonary process. Reviewed by: Cary Ratliff MD on 12/13/2023 10:06 PM PDT Approved by: Cary Ratliff MD on 12/13/2023 10:06 PM PDT Station ID: [id number]
[2023-12-13 22:08] LABS: BACTERIA,URINE Many /HPF (None Seen); SPERM,URINE PRESENT; SQUAMOUS EPITHELIAL CELL,UR RARE Squamous (<= Few)
[2023-12-13 22:08] LABS: ABNORMAL LYMPHS % (MANUAL) 0 %; ALBUMIN 4.3 g/dL (3.2-5.5); ALBUMIN/GLOBULIN RATIO 1.3 (1.0-2.2); BILIRUBIN,TOTAL 0.9 mg/dL (0.2-1.0); CALCIUM 9.5 mg/dL (8.5-10.3); CREATININE 1.3 mg/dL (0.6-1.3); POTASSIUM 3.9 mmol/L (3.5-4.5); TOTAL PROTEIN 7.7 g/dL (6.4-8.9)
[2023-12-13 22:09] LABS: INR 3.1 (0.8-1.2); PT - PROTHROMBIN TIME 31.9 secs (9.9-12.6)
[2023-12-13] MEDS: SODIUM CHLORIDE 0.9% 1,000 ML IV STA (22:24)
[2023-12-13] MEDS: ACETAMINOPHEN 325 MG TABLET PO STA (22:24)
[2023-12-13] MEDS ORDERED: iohexoL-300 100 ML VIAL ONE (22:27)
[2023-12-13 22:29] LABS: BAND NEUTROPHILS % (MANUAL) 2 %; LYMPHOCYTES # (MANUAL) 0.7 10^3/uL (1.5-3.5); LYMPHOCYTES % (MANUAL) 1 %; MONOCYTES # (MANUAL) 0.7 10^3/uL (0.0-1.0); NEUTROPHILS # (MANUAL) 21.2 10^3/uL (1.5-6.6); PLATELET MORPHOLOGY NORMAL APPEARANCE (NORMAL); RBC MORPHOLOGY (MULTIPLE) NORMAL APPEARANCE (NORMAL); REACTIVE LYMPHS % (MANUAL) 2 %
[2023-12-13 22:30] LABS: PLATELET ESTIMATE, MANUAL NORMAL (130-450,000) (NORMAL)
[2023-12-13 22:31] LABS: DIFFERENTIAL COMMENT MANUAL DIFFERENTIAL
[2023-12-13 22:50] LABS: B. PARAPERTUSSIS- RESP PCR PAN NOT DETECTED; B. PERTUSSIS- RESP PCR PANEL NOT DETECTED; C. PNEUMONIAE- RESP PCR PANEL NOT DETECTED; CORONAVIRUS 229E-RESP PCR NOT DETECTED; CORONAVIRUS HKU1-RESP PCR NOT DETECTED; CORONAVIRUS NL63-RESP PCR NOT DETECTED; CORONAVIRUS OC43-RESP PCR NOT DETECTED; HUMAN METAPNEUMOVIRUS NOT DETECTED; INFLUENZA A- RESP PCR PANEL NOT DETECTED; INFLUENZA B - RESP PCR PANEL NOT DETECTED; M. PNEUMONIAE- RESP PCR PANEL NOT DETECTED; PARAINFLUENZA VIRUS 1 NOT DETECTED; PARAINFLUENZA VIRUS 2 NOT DETECTED; PARAINFLUENZA VIRUS 3 NOT DETECTED; PARAINFLUENZA VIRUS 4 NOT DETECTED; RHINOVIRUS/ENTEROVIRUS NOT DETECTED; RSV- RESP PCR PANEL NOT DETECTED; SARS-CoV-2 -RESP PCR PANEL NOT DETECTED
[2023-12-13] MEDS ORDERED: cefTRIAXone 2 GM VIAL ONE (23:12)
[2023-12-13] MEDS: iohexoL-300 100 ML VIAL IVP ONE (23:15)
[2023-12-13] MEDS: cefTRIAXone 2 GM in SODIUM CHLORIDE 0.9% MINIBAG 100 ML IV STA (23:18)
--- NOTE | 2023-12-13 23:37 | CT Report ---
PROCEDURE: Abdomen/Pelvis W INDICATIONS: fever CONTRAST: 100 ML OMNI 300 TECHNIQUE: After the administration of intravenous contrast, a CT scan of the abdomen and pelvis was performed. Images were recorded and evaluated at appropriate window settings. Reformats: coronal and sagittal. F or radiation dose reduction, the following was used: automated exposure control, adjustment of mA and /or kV according to patient size. COMPARISON: Ultrasound abdomen 07/07/2023, CT abdomen pelvis 07/07/2023 CT chest 14 FINDINGS: Image quality: Diagnostic. Lower chest: Scattered pulmonary nodules the largest in the lateral aspect of the right upper lobe, u nchanged since 2013. Minimal appearance of streaky linear opacities likely atelectasis. Liver: 7 mm inferior right lateral hepatic cyst. Gallbladder and biliary tree: Clips are present within the gallbladder fossa consistent with cholecys tectomy. Within the gallbladder fossa there is a 2.7 x 3.5 cm focus of fluid and air identified. Spleen: No splenomegaly. Pancreas: No pancreatic ductal dilation. Adrenals: No adrenal nodule. Kidneys and ureters: No hydronephrosis. No renal cystic lesion which requires follow up. No solid mas s. Stomach, bowel and peritoneum: No bowel distension. No pathologic free fluid. Minimal scattered colon ic diverticula. Lymph nodes: No central or retroperitoneal adenopathy. Vessels: No infrarenal aortic aneurysm. PELVIS Reproductive organs: Unremarkable. Bladder: No abnormal wall thickening, accounting for underdistention. Pelvic lymph nodes: No pelvic adenopathy by size criteria. Bones: No aggressive osseous abnormality. Other: Fat-containing ventral hernia. Prominent bilateral fat-containing inguinal hernias.. IMPRESSION: Status post cholecystectomy with organized focus of fluid and air in the gallbladder fossa most sugge stive of abscess. Biloma cannot be excluded. Reviewed by: Cary Ratliff MD on 12/13/2023 11:36 PM PDT Approved by: Cary Ratliff MD on 12/13/2023 11:36 PM PDT Station ID: [id number]
[2023-12-13] MEDS: PIPERACILLIN/TAZOBACTAM 3.375 GM in SODIUM CHLORIDE 0.9% MINIBAG 100 ML IV STA (23:58)
[2023-12-14 01:38] VITALS: BP 109/43; O2SAT 93
== END 2023-12-14 01:30 | disposition home or self-care (01) ==
LOC: EDUNIT# → ED 21:01
DX: N39.0 Urinary tract infection, site not specified (principal); R93.5 Abnormal findings on diagnostic imaging of other abdominal regions, including retroperitoneum
CPT/HCPCS: 36415; 71045; 74177; 80053; 81001; 83605; 83690; 85025; 85610; 85730; 87040; 87077; 87086; 87181; 87633; 96365; 96367; 99284; A9270; Q9967; 81003

== ENCOUNTER → 2024-01-01 | Outpatient (CLI) | payer BC, MEDICARE | LOC: LAB.WCP 08:00 | PROVIDERS: ATTEND Physician Assistant Medical | DX: I48.91 Unspecified atrial fibrillation (principal); Z79.01 Long term (current) use of anticoagulants; Z95.2 Presence of prosthetic heart valve ==